=== PATIENT | male | born 1960 | race Caucasian/White ===

== ENCOUNTER → 2017-04-12 | Outpatient (CLI) | payer BC ==
[~2017-04-12] MED LIST: IBUP-1450 PO; METO50TA7 PO
--- NOTE | 2017-04-12 16:09 | DIAGNOSTIC IMAGING REPORT ---
CHEST 2 VIEWS ROUTINE CLINICAL HISTORY: I10 [id number] dyspnea COMPARISON STUDY: 08/22/2012 FINDINGS: Mild stable cardia megaly. Mild atelectasis left base. Lungs otherwise appear clear. IMPRESSION: Mild cardia megaly. Mild platelike atelectasis left base. Otherwise negative study. The above report was generated using voice recognition software. It may contain grammatical, syntax or spelling errors. Electronically signed by: Leonel Correa M.D. 04/12/2017 4:07 PM Dictated Date/Time: 04/12/2017 4:07 PM
== END | disposition home or self-care (01) ==
LOC: C.RADBC 15:54
PROVIDERS: ATTEND Internal Medicine
DX: I10 Essential (primary) hypertension (principal)

== ENCOUNTER → 2017-04-12 | Outpatient (CLI) | payer BC ==
[2017-04-12 17:38] LABS: BASO % 0.4 %; BASO ABS # 0.03 K/uL (0-0.2); COMPLETE YES; EOS % 3.7 %; HEMATOCRIT 44.6 % (42-52); IG% 0.4 %; LYMPH % 33.4 %; LYMPH ABS # 2.44 K/uL (1.2-3.4); MEAN CELL VOLUME 92.5 fL (80-100); MEAN CORPUSCULAR HEMOGLOBIN 31.3 pg (25-34); MEAN CORPUSCULAR HGB CONC 33.9 g/dl (32-36); MEAN PLATELET VOLUME 10.5 fL (7.4-10.4); MONO % 11.5 %; NEUT % 50.6 %; PLATELET COUNT 222 K/uL (130-400); RED BLOOD COUNT 4.82 M/uL (4.7-6.1)
[2017-04-12 18:16] LABS: BLOOD UREA NITROGEN 13 mg/dl (7-18); CREATININE 0.85 mg/dl (0.60-1.40); GLUCOSE 87 mg/dl (70-99)
[2017-04-12 18:17] LABS: ALT/SGPT 57 U/L (12-78); BUN/CREATININE RATIO 15.6 (10-20); CALCIUM 9.1 mg/dl (8.5-10.1); CARBON DIOXIDE 28 mmol/L (21-32); CHLORIDE 107 mmol/L (98-107); SODIUM 142 mmol/L (136-145)
[2017-04-12 18:27] LABS: ALB/GLOB RATIO 1.1 (0.9-2); ALKALINE PHOSPHATASE 55 U/L (45-117); AST/SGOT 15 U/L (15-37)
[2017-04-12 18:59] LABS: LYME DISEASE AB IGM NEG (NEG)
[2017-04-12 19:00] LABS: LYME DISEASE AB IGG NEG (NEG)
== END | disposition home or self-care (01) ==
LOC: C.LAB 16:33
PROVIDERS: ATTEND Internal Medicine
DX: I10 Essential (primary) hypertension (principal); M79.1 Myalgia

== ENCOUNTER → 2017-08-06 | Outpatient (CLI) | payer BC | END | disposition home or self-care (01) | LOC: C.RDSM 08:00 | PROVIDERS: ATTEND Orthopaedic Surgery Sports Medicine | DX: M25.561 Pain in right knee (principal) ==

== ENCOUNTER → 2018-01-18 | Outpatient (CLI) | payer OTHER ==
[~2018-01-18] MED LIST changes: -METO50TA7 PO; +METO50TA8 PO
== END | disposition home or self-care (01) ==
LOC: C.LAB 14:50
PROVIDERS: ATTEND Internal Medicine
DX: Z11.59 Encounter for screening for other viral diseases (principal)

== ENCOUNTER 2018-09-05 13:21 | Inpatient (IN) ==
--- NOTE | 2018-09-05 15:01 | XRay Report ---
XR chest 1V portable HISTORY: 58 years-old Male SHORT OF BREATH acute shortness of breath COMPARISON: Chest radiograph 08/22/2012 TECHNIQUE: Portable AP view of the chest FINDINGS: Cardiac silhouette is enlarged, unchanged. Trace pleural effusions. Subsegmental bibasilar opacities. Mild pulmonary vascular congestion without pneumothorax. Calcification the thoracic aortic arch. Deg enerative changes of the shoulders and spine. IMPRESSION: 1. Cardiomegaly with pulmonary vascular congestion. 2. Trace bilateral pleural effusions with subsegmental bibasilar opacities suggestive of atelectasis. The above report was generated using voice recognition software. It may contain grammatical, syntax o r spelling errors. Electronically signed by: Walter Amaral M.D. 09/05/2018 2:59 PM
[2018-09-05 15:40] LABS: Basophils # (auto) 0.01 K/uL (0-0.2); Basophils % (auto) 0.1 %; Eosinophils # (auto) 0.31 K/uL (0-0.5); Eosinophils % (auto) 4.2 %; Hematocrit (blood only) 50.2 % (42-52); Hemoglobin 16.2 g/dL (14.0-18.0); Immature Granulocytes # (auto) 0.03 K/uL (0.00-0.02); Immature Granulocytes % (auto) 0.4 %; Lymphocytes # (auto) 1.69 K/uL (1.2-3.4); Lymphocytes % (auto) 23.1 %; Mean Corpuscular Hgb Conc 32.3 g/dL (32-36); Mean Corpuscular Volume 96.5 fL (80-100); Mean Platelet Volume 10.3 fL (7.4-10.4); Monocytes % (auto) 12.3 %; Neutrophils # (auto) 4.38 K/uL (1.4-6.5); Neutrophils % (auto) 59.9 %; Platelet Count 195 K/uL (130-400); RDW Coefficient of Variation 13.2 % (11.5-14.5); RDW Standard Deviation 46.6 fL (36.4-46.3); White Blood Count 7.32 K/uL (4.8-10.8)
[2018-09-05] MEDS ORDERED: DOXYCYCLINE HYCLATE 100 MG in DEXTROSE 5% 100 ML IV STA (15:52)
[2018-09-05 16:35] LABS: Alanine Aminotransferase 40 U/L (12-78); Albumin Globulin Ratio 0.8 (0.9-2); Albumin Level 3.4 gm/dl (3.4-5.0); Alkaline Phosphatase 64 U/L (45-117); BUN Creatinine Ratio 14.8 (10-20); Bilirubin,Total 0.5 mg/dl (0.2-1); Blood Urea Nitrogen 12 mg/dl (7-18); Calcium 8.6 mg/dl (8.5-10.1); Carbon Dioxide 29 mmol/L (21-32); Chloride 103 mmol/L (98-107); Est GFR (African American) 112.7; Est GFR (Non-African American) 97.2; Globulin 4.2 gm/dl (2.5-4.0); Glucose 116 mg/dl (70-99); Sodium 138 mmol/L (136-145); Total Protein 7.6 gm/dl (6.4-8.2); Troponin I < 0.015 ng/ml (0-0.045)
--- NOTE | 2018-09-05 16:48 | Ultrasound Report ---
US venous doppler LE BI HISTORY: Pain. Edema. swwelling eval for dvt COMPARISON STUDY: 07/18/2015 FINDINGS: There is normal compressibility, flow, and augmentation within the bilateral lower extremit y deep venous systems. IMPRESSION: No DVT within the right or left lower extremity. The above report was generated using voice recognition software. It may contain grammatical, syntax or spelling errors. Electronically signed by: Leonel Correa M.D. 09/05/2018 4:46 PM
[2018-09-05 17:29] LABS: Potassium 4.3 mmol/L (3.5-5.1)
[2018-09-05] MEDS ORDERED: VANCOMYCIN HCL 2,750 MG in SODIUM CHLORIDE 0.9% 500 ML IV ONE (17:45)
--- NOTE | 2018-09-05 18:32 | History & Physical Report ---
Date of Service September 05, 2018 Assessment & Plan (1) Cellulitis of both lower extremities: (2) Lymphedema: -Admit to [facility] for observation -Infectious disease consulted, ER physician spoke with Dr. Calabrese who initially recommended doxycycline p.o. and for the patient to be sent home, however the patient has expressed concerns and wishes to be admitted due to increased weeping on the backside of his legs as well as difficulty walking due to swelling. -Place patient on IV vancomycin, also cover with IV ceftriaxone -No WBC, afebrile, vital signs stable -We will check MRSA swab -Wound consulted -Will order Lasix 40 mg IV now for increased swelling in LE to see if this alleviates sensation of tightness, monitor am prp to watch Cr. and electrolytes. CXR did show trace effusions bilaterally. -Dopplers negative for DVT bilaterally (3) Morbid obesity: -Diet and exercise discussed with the patient at bedside -Patient reports gaining 150 pounds of the past 18 months. -Heart healthy diet -Alcohol use contributing (4) Alcohol abuse: -Patient drinks 8-10 beers per day-we will check EtOH level now -Monitor for signs of withdrawal, Ativan p.o. as needed for withdrawal symptoms such as agitation, tremor, hemodynamic instability -Cessation encouraged at bedside, patient will need reinforcement upon discharge -Start daily thiamine and MVI (5) Depression: -Patient appears to have enough flat affect throughout the exam, and appears to be dissatisfied and irritated with any questioning. patient does have an ex- who was initially here, however was not at bedside during my exam. -Consider psych consult and conversation regarding initiation of an antidepressant (6) DVT prophylaxis: -Lovenox subcu History of Present Illness Primary Care Provider: Gelacio Burroughs MD This is a 58 yo M with PMHx of morbid obesity with BMI of 51.7, chronic lymphedema, chronic bilateral lower leg cellulitis on chronic bactrim and keflex , chronic alcohol abuse, chronic venous insufficiency, stasis dermatitis who presents with worsening swelling and weeping from left posterior calf which has worsened x 1 week. Pt states he feels a tightness in his legs and feet like he is wearing shoes. He also has a burning sensation superficially where the blister on the back of his left calf has opened. He denies fever, chills or sweats. Pt states that he has gained 150 lbs in past ~18 months, he does not weight himself, and states he cannot participate in exercise because of R quadricept tear sustained about 2 years ago. Doppler BLE negative for acute DVT. Allergies Allergy/AdvReac Type Severity Reaction Status Date / Time iodine Allergy Intermediate CT DYE - Verified 07/23/15 19:55 HIVES Home Medications Home Medications Medication Instructions Recorded Confirmed Type aspirin [Aspir-81] 81 mg PO DAILY 09/05/18 09/05/18 History cephalexin 500 mg PO DAILY 09/05/18 09/05/18 History metoprolol succinate 50 mg PO DAILY 09/05/18 09/05/18 History sulfamethoxazole-trimethoprim 1 tab PO DAILY 09/05/18 09/05/18 History Past Med/Surg History Medical History Depression Alcohol abuse Morbid obesity Cellulitis of both lower extremities (Acute) Lymphedema (Acute) Group B streptococcal infection Leukocytosis Quadriceps tendon rupture (Acute) Social History marital status: single current occupational status: employed Feels Safe at Home: Yes Smoking Status: Never smoker Preferred Language: Cam[place]onian Review of Systems Constitutional: No fever, sweats or chills Eyes: No diplopia, no worsening or blurred vision ENT: normal hearing, no trouble swallowing Respiratory: No cough, sputum, dyspnea at rest , + dyspnea on exertion Cardiovascular: No chest pain, tightness or palpitations Abdomen: No pain, nausea, vomiting, diarrhea or constipation Musculoskeletal: No joint pain, calf pain, + swelling in BLE as per HPI. Neurologic: No weakness, numbness/tingling, or balance problems Psychiatric: No anxiety or depression Skin: No rash or itch Physical Exam 2 Vital Signs (Past 24 Hours): Last Vital Signs Temp 37 C 09/05/18 14:07 Pulse 55 L 09/05/18 17:48 Resp 18 09/05/18 17:48 BP 159/86 H 09/05/18 17:48 Pulse Ox 98 09/05/18 17:48 Physical Exam: General: awake, alert, no apparent distress, morbidly obese, BMI =51.7 Head: Normocephalic, atraumatic ENT: PERRL, EOMI, no pharyngeal exudate, mucous membranes moist Chest: Clear to auscultation, on room air, + faint expiratory wheeze in lower lo bilaterally, no other adventitious breath sounds Cardiac: Regular rate and rhythm, no murmur, no JVD, normal peripheral pulses, good capillary refill Abdominal: NABS x 4 quadrants, soft, nontender to palpation, no rebound, guarding or tenderness Extremities: Normal inspection, no peripheral edema or erythema, calfs nontender to palpation Psych: Depressed mood and flat affect, irritable when questioned, especially about drinking Neuro: AAO x 3, strength intact bilaterally and related 5/5, no motor deficits, speech is clear, no peripheral sensory deficits Results & Data Diagnostic Findings XR chest 1V portable HISTORY: 58 years-old Male SHORT OF BREATH acute shortness of breath COMPARISON: Chest radiograph 08/22/2012 TECHNIQUE: Portable AP view of the chest FINDINGS: Cardiac silhouette is enlarged, unchanged. Trace pleural effusions. Subsegmental bibasilar opacities. Mild pulmonary vascular congestion without pneumothorax. Calcification the thoracic aortic arch. Degenerative changes of the shoulders and spine. IMPRESSION: 1. Cardiomegaly with pulmonary vascular congestion. 2. Trace bilateral pleural effusions with subsegmental bibasilar opacities suggestive of atelectasis. US venous doppler LE BI HISTORY: Pain. Edema. swwelling eval for dvt COMPARISON STUDY: 07/18/2015 FINDINGS: There is normal compressibility, flow, and augmentation within the bilateral lower extremity deep venous systems. IMPRESSION: No DVT within the right or left lower extremity. ECG Additional Comments: 05-SEP-2018 14:53:30 [facility] Normal sinus rhythm Incomplete right bundle branch block Nonspecific ST abnormality Borderline ECG When compared with ECG of 19-FEB-2015 13:02, Nonspecific T wave abnormality now evident in Lateral leads Vent. rate 63 BPM MD interval 186 ms QRS duration 96 ms QT/QTc 414/423 ms P-R-T axes 53 4 51 Code Status & VTE Plan Code Status Full Supervising Physician Co-Signing Physician Notes Patient seen and examined, chart reviewed, case discussed with SOCORRO Castillo and I agree with her assessment and plan as documented above. Patient is a 58yo morbidly obese C male with history of lymphedema, cellulitis on suppressive antibiotic therapy outpatient (Keflex/Bactrim) presenting with worsening cellulitis and weeping, pain from an open wound. On exam he is afebrile, hemodynamically stable, NAD. Flat affect. Skin - LE with edema, warm, red, tender, flaking skin, no bullae/crepitus/ lymphangitic streaking HEENT- NC/AT, PERRL, MMM, neck supple Heart - +S1/S2, regular, bradycardic Lungs - CTA, no rales/rhonchi/wheezes Abd - obese, soft, NT/ND Ext - as above Labs and images reviewed. Assessment/Plan: 58yo male with lymphedema, cellulitis, failed outpatient therapy. Will admit for IV antibiotics. Monitor for EtOH withdrawal as patient is a heavy drinker. I discussed patient's drinking with him and the risks associated with heavy EtOH consumption. Patient appears quite depressed and may benefit from trial of SSRI
[2018-09-05] MEDS ORDERED: FUROSEMIDE 40 MG in SYRINGE 0 ML IV SCH (20:30)
[2018-09-05] MEDS ORDERED: ONDANSETRON INJ 2 MG/ML 2 ML VIAL IV PRN (20:34)
[2018-09-05] MEDS ORDERED: VANCOMYCIN CONSULT ACTIVE PRN (20:34)
[2018-09-05] MEDS ORDERED: LORazepam 1 MG TAB PO PRN (20:34)
[2018-09-05] MEDS ORDERED: ACETAMINOPHEN 325 MG TAB PO PRN (20:34)
[2018-09-05] MEDS ORDERED: FUROSEMIDE 40 MG/4 ML VIAL IV STA (20:34)
[2018-09-05 21:27] LABS: Albumin Level 3.2 gm/dl (3.4-5.0); Bilirubin Direct 0.1 mg/dl (0-0.2); Bilirubin,Total 0.5 mg/dl (0.2-1); Total Protein 6.5 gm/dl (6.4-8.2)
[2018-09-05] MEDS: THIAMINE HCL 100 MG in SYRINGE 9 ML IV SCH (21:29)
[2018-09-05] MEDS: cefTRIAXone SODIUM 2,000 MG in DEXTROSE 5% 50 ML IV SCH (21:29)
[2018-09-05 21:35] LABS: Folate (Folic Acid) 19.38 ng/ml (>5.38)
--- NOTE | 2018-09-05 22:20 | Emergency Department Note ---
Entered by Karolina Davey acting as a scribe for History of Present Illness General Chief complaint: Swelling/Edema to Extremity Stated complaint: lymphdema Source: patient Mode of arrival: ambulatory Limitations: no limitations History of Present Illness Provider complaint: Swelling to legs Onset (ago): week(s) (couple of weeks ago) Location: lower extremity (bilateral legs) Radiation: non-radiation Pain Consistency: + other (worsening) Maximum Pain Intensity: 0 Quality: + other (swelling) Relieved By: + none Associated symptoms: + fever/chills (positive chills, negative fever), + shortness of breath and + other (Additional symptoms: erythema, dry skin, weeping on back of legs. Denies: swelling elsewhere on body); no nausea/vomiting Treatments prior to arrival: none The patient is a 58 year old male who presents to the Emergency Room with complaints of worsening bilateral leg swelling starting a couple of weeks ago. The patient reports that he sees Dr. Alvarez and Dr. Calabrese for lymphedema and infection in his bilateral legs, which he developed following surgery for a ruptured quadriceps tendon a few years ago. He states that he has consequently been on antibiotics, including Bactrim and Keflex for the past couple of years. He notes that he was referred the ED today because his doctors could not schedule him an appointment before next week but did not want his leg symptoms to continue worsening. The patient reports that his bilateral legs swelling has been accompanied by spreading erythema, increasing dry skin, and burning and sore weeping on the back of his legs starting 3 days ago. He states that his weeping produces clear "sap-like" fluid. He also complains of chills and shortness of breath over the past year, but no fevers, vomiting, and swelling elsewhere on his body. The patient adds that he does not elevate his legs and sleeps on a recliner. He also states that at his employment he is standing on his feet all day. He notes that he saw Dr. Palmer in [place] about possibly "closing off" some of his veins to improve circulation in his legs, but he reports that Dr. Palmer was unable to do anything because his lymphedema is reportedly a "deep vein problem."He denies having a history of DVT. Home Medications Home Medications Medication Instructions Recorded Confirmed Type aspirin [Aspir-81] 81 mg PO DAILY 09/05/18 09/05/18 History cephalexin 500 mg PO DAILY 09/05/18 09/05/18 History metoprolol succinate 50 mg PO DAILY 09/05/18 09/05/18 History sulfamethoxazole-trimethoprim 1 tab PO DAILY 09/05/18 09/05/18 History Allergies Allergy/AdvReac Type Severity Reaction Status Date / Time iodine Allergy Intermediate CT DYE - Verified 07/23/15 19:55 HIVES Past Med/Surg History Medical History Depression Alcohol abuse Morbid obesity Cellulitis of both lower extremities (Acute) Lymphedema (Acute) Group B streptococcal infection Leukocytosis Quadriceps tendon rupture (Acute) Social History marital status: single Current Living Situation: Alone current occupational status: employed Other Information That Helps Us Care for You: No Feels Safe at Home: Yes Safety Concerns: Feels Safe At This Time Smoking Status: Never smoker Hx Alcohol Use: Yes Alcohol type: beer Alcohol Intake Frequency: 3 or more drinks per day Hx Substance Use: No Beliefs That Will Affect Care: None Preferred Language: Trinidadian Communication Ability: Effective Thermite Bomb Loader Required: No Review of Systems See HPI for pertinent positives & negatives. and A total of 10 systems reviewed and were otherwise negative Physical Exam Vital Signs Vital Signs - 24 hr 09/05/18 14:07 09/05/18 14:56 09/05/18 14:59 Temperature 37 C Temperature Source Oral Sepsis Recent Fever Within 48 Hours No Sepsis New/Unexplained Change in Mental Status No Sepsis Action Taken by Nursing No Action Required Pulse Rate 72 64 Pulse Rate [Left Finger] Pulse Rhythm [Left Finger] Pulse Strength [Left Finger] Respiratory Rate 22 18 Respiratory Effort / Characteristics Non-Labored Spontaneous Respiratory Depth Normal Respiratory Pattern Regular Blood Pressure 171/87 H Blood Pressure [Left Arm] Blood Pressure Mean 115 Blood Pressure Mean [Left Arm] Pulse Oximetry 93 95 92 Oxygen Delivery Method Room Air Room Air 09/05/18 15:01 09/05/18 15:31 09/05/18 16:01 Temperature Temperature Source Sepsis Recent Fever Within 48 Hours Sepsis New/Unexplained Change in Mental Status Sepsis Action Taken by Nursing Pulse Rate 60 60 63 Pulse Rate [Left Finger] Pulse Rhythm [Left Finger] Pulse Strength [Left Finger] Respiratory Rate 21 17 20 Respiratory Effort / Characteristics Respiratory Depth Respiratory Pattern Blood Pressure 147/78 H 142/75 H 142/71 H Blood Pressure [Left Arm] Blood Pressure Mean 101 97 94 Blood Pressure Mean [Left Arm] Pulse Oximetry 93 Oxygen Delivery Method 09/05/18 17:48 09/05/18 19:56 09/05/18 21:40 Temperature 36.6 C Temperature Source Oral Sepsis Recent Fever Within 48 Hours Sepsis New/Unexplained Change in Mental Status Sepsis Action Taken by Nursing Pulse Rate Pulse Rate [Left Finger] 55 L 78 84 Pulse Rhythm [Left Finger] Regular Pulse Strength [Left Finger] Normal Respiratory Rate 18 22 22 Respiratory Effort / Characteristics Non-Labored Spontaneous Non-Labored Respiratory Depth Normal Normal Respiratory Pattern Regular Blood Pressure Blood Pressure [Left Arm] 159/86 H 151/70 H 172/96 H Blood Pressure Mean Blood Pressure Mean [Left Arm] 110 97 121 Pulse Oximetry 98 92 94 Oxygen Delivery Method Room Air Room Air Constitutional: Vital signs reviewed. Eyes: Pupils are equal round reactive to light. Conjunctiva are noninjected. ENT: Pharynx is clear without erythema or exudate. Mucous membranes are moist. Neck supple without meningeal signs. Respiratory: Clear to auscultation bilaterally. Breath sounds are equal bilaterally. Cardiovascular: Regular rate and rhythm. No rubs or gallops. GI: Soft, nondistended and nontender. Bowel sounds are present. Musculoskeletal: Severe lymphedema to the lower extremities with erythema and tenderness from the knees down to the toes. Weeping of yellowish clear fluid from the posterior left calf. Integumentary: No cyanosis. Neurological: The patient is awake and alert. No focal deficits. Psychiatric: Normal affect. Course 1537: Past medical records reviewed. The patient was evaluated in room C6, and a complete history and physical examination were performed. 1551: I reviewed the patient's case with Dr. Calabrese - Infectious Disease, [facility]. Dr. Calabrese recommended putting the patient on a 14-day course of Doxycycline and instructing him to follow up with her at her office. 1555: I updated the patient on his treatment plan. 1722: I reevaluated the patient and he stated that he is uncomfortable being discharged. He noted that he feels like his legs are worse and would like to be admitted. I will page Dr. Calabrese. 1724: I reviewed the patient's case with Dr. Calabrese. Dr. Calabrese stated to start him on Vancomycin. 1734: I reviewed the patient's case with Dr. Templeton - Hospitalist, [facility]. Dr. Templeton will evaluate the patient for further management. Consultations Consultation #1: I reviewed the patient's case with Dr. Calabrese - Infectious Disease, [facility]. Dr. Calabrese recommended putting the patient on a 14- day course of Doxycycline and instructing him to follow up with her at her office. Time: 15:51 Consultation #2: I reviewed the patient's case with Dr. Calabrese after the patient and his ex- stated that they did not feel comfortable with him going home. Dr. Calabrese stated to start him on Vancomycin. Time: 17:24 Consultation #3: I reviewed the patient's case with Dr. Templeton - Hospitalist, [facility]. Dr. Templeton will evaluate the patient for further management. Time: 17:34 Administered Medications Ceftriaxone Sodium 2,000 mg/ (Dextrose) 70 mls @ 100 mls/hr IV Q24H [facility]; Protocol Stop: 09/15/18 20:59 Last Admin: 09/05/18 21:29 Dose: 100 mls/hr Thiamine HCl 100 mg/ Syringe 10 mls @ 2 mls/hr IV Q24H [facility] Stop: 10/05/18 20:59 Last Admin: 09/05/18 21:29 Dose: 2 mls/hr Discontinued Medications Doxycycline Hyclate 100 mg/ (Dextrose) 110 mls @ 50 mls/hr IV NOW STA Stop: 09/05/18 18:03 Last Infusion: 09/05/18 19:29 Dose: 0 mls/hr Admin: 09/05/18 16:46 Dose: 50 mls/hr Vancomycin HCl 2,750 mg/ (Sodium Chloride) 555 mls @ 200 mls/hr IV NOW ONE Stop: 09/05/18 20:31 Last Infusion: 09/05/18 21:27 Dose: Admin: 09/05/18 18:14 Dose: 200 mls/hr Medical Decision Making Differential Diagnosis Differential diagnosis includes cellulitis, lymphedema, DVT, CHF, outpatient treatment failure. Medical Records Attestation: I reviewed the patient's medical records. Home Medications Current Medication List: was personally reviewed by me Laboratory Data Attestation: I reviewed the patient's lab results. Result diagrams: 09/05/18 15:20 09/05/18 17:06 Lab Results 09/05/18 09/05/18 09/05/18 Range/Units 15:20 15:20 15:20 WBC 7.32 (4.8-10.8) K/uL RBC 5.20 (4.7-6.1) M/uL Hgb 16.2 (14.0-18.0) g/dL Hct 50.2 (42-52) % MCV 96.5 (80-100) fL MCH 31.2 (25-34) pg MCHC 32.3 (32-36) g/dL RDW Std Deviation 46.6 H (36.4-46.3) fL RDW Coeff of Megan 13.2 (11.5-14.5) % Plt Count 195 (130-400) K/uL MPV 10.3 (7.4-10.4) fL Immature Gran % (Auto) 0.4 % Neut % (Auto) 59.9 % Lymph % (Auto) 23.1 % Harrison % (Auto) 12.3 % Eos % (Auto) 4.2 % Baso % (Auto) 0.1 % Immature Gran # (Auto) 0.03 H (0.00-0.02) K/uL Neut # (Auto) 4.38 (1.4-6.5) K/uL Lymph # (Auto) 1.69 (1.2-3.4) K/uL Harrison # (Auto) 0.90 H (0.11-0.59) K/uL Eos # (Auto) 0.31 (0-0.5) K/uL Baso # (Auto) 0.01 (0-0.2) K/uL Sodium 138 (136-145) mmol/L Potassium (3.5-5.1) mmol/L Chloride 103 (98-107) mmol/L Carbon Dioxide 29 (21-32) mmol/L Anion Gap 6.0 (3-11) BUN 12 (7-18) mg/dl Creatinine 0.84 (0.6-1.4) mg/dl Est Cr Clr Drug Dosing Not Reportable Est GFR ( Amer) 112.7 Est GFR (Non-Af Amer) 97.2 BUN/Creatinine Ratio 14.8 (10-20) Glucose 116 H (70-99) mg/dl Calcium 8.6 (8.5-10.1) mg/dl Total Bilirubin 0.5 (0.2-1) mg/dl Direct Bilirubin (0-0.2) mg/dl AST (15-37) U/L ALT 40 (12-78) U/L Alkaline Phosphatase 64 (45-117) U/L Troponin I < 0.015 (0-0.045) ng/ml NT-Pro-B Natriuret Pep 21 (0-900) pg/ml Total Protein 7.6 (6.4-8.2) gm/dl Albumin 3.4 (3.4-5.0) gm/dl Globulin 4.2 H (2.5-4.0) gm/dl Albumin/Globulin Ratio 0.8 L (0.9-2) Vitamin B12 (211-911) pg/ml Folate (>5.38) ng/ml Ethyl Alcohol mg/dL (0-3) mg/dl 09/05/18 09/05/18 09/05/18 Range/Units 17:06 20:48 20:48 WBC (4.8-10.8) K/uL RBC (4.7-6.1) M/uL Hgb (14.0-18.0) g/dL Hct (42-52) % MCV (80-100) fL MCH (25-34) pg MCHC (32-36) g/dL RDW Std Deviation (36.4-46.3) fL RDW Coeff of Megan (11.5-14.5) % Plt Count (130-400) K/uL MPV (7.4-10.4) fL Immature Gran % (Auto) % Neut % (Auto) % Lymph % (Auto) % Harrison % (Auto) % Eos % (Auto) % Baso % (Auto) % Immature Gran # (Auto) (0.00-0.02) K/uL Neut # (Auto) (1.4-6.5) K/uL Lymph # (Auto) (1.2-3.4) K/uL Harrison # (Auto) (0.11-0.59) K/uL Eos # (Auto) (0-0.5) K/uL Baso # (Auto) (0-0.2) K/uL Sodium (136-145) mmol/L Potassium 4.3 (3.5-5.1) mmol/L Chloride (98-107) mmol/L Carbon Dioxide (21-32) mmol/L Anion Gap (3-11) BUN (7-18) mg/dl Creatinine (0.6-1.4) mg/dl Est Cr Clr Drug Dosing Est GFR ( Amer) Est GFR (Non-Af Amer) BUN/Creatinine Ratio (10-20) Glucose (70-99) mg/dl Calcium (8.5-10.1) mg/dl Total Bilirubin 0.5 (0.2-1) mg/dl Direct Bilirubin 0.1 (0-0.2) mg/dl AST 6 L 5 L (15-37) U/L ALT 33 (12-78) U/L Alkaline Phosphatase 55 (45-117) U/L Troponin I (0-0.045) ng/ml NT-Pro-B Natriuret Pep (0-900) pg/ml Total Protein 6.5 (6.4-8.2) gm/dl Albumin 3.2 L (3.4-5.0) gm/dl Globulin (2.5-4.0) gm/dl Albumin/Globulin Ratio (0.9-2) Vitamin B12 559 (211-911) pg/ml Folate 19.38 (>5.38) ng/ml Ethyl Alcohol mg/dL (0-3) mg/dl 09/05/18 Range/Units 20:48 WBC (4.8-10.8) K/uL RBC (4.7-6.1) M/uL Hgb (14.0-18.0) g/dL Hct (42-52) % MCV (80-100) fL MCH (25-34) pg MCHC (32-36) g/dL RDW Std Deviation (36.4-46.3) fL RDW Coeff of Megan (11.5-14.5) % Plt Count (130-400) K/uL MPV (7.4-10.4) fL Immature Gran % (Auto) % Neut % (Auto) % Lymph % (Auto) % Harrison % (Auto) % Eos % (Auto) % Baso % (Auto) % Immature Gran # (Auto) (0.00-0.02) K/uL Neut # (Auto) (1.4-6.5) K/uL Lymph # (Auto) (1.2-3.4) K/uL Harrison # (Auto) (0.11-0.59) K/uL Eos # (Auto) (0-0.5) K/uL Baso # (Auto) (0-0.2) K/uL Sodium (136-145) mmol/L Potassium (3.5-5.1) mmol/L Chloride (98-107) mmol/L Carbon Dioxide (21-32) mmol/L Anion Gap (3-11) BUN (7-18) mg/dl Creatinine (0.6-1.4) mg/dl Est Cr Clr Drug Dosing Est GFR ( Amer) Est GFR (Non-Af Amer) BUN/Creatinine Ratio (10-20) Glucose (70-99) mg/dl Calcium (8.5-10.1) mg/dl Total Bilirubin (0.2-1) mg/dl Direct Bilirubin (0-0.2) mg/dl AST (15-37) U/L ALT (12-78) U/L Alkaline Phosphatase (45-117) U/L Troponin I (0-0.045) ng/ml NT-Pro-B Natriuret Pep (0-900) pg/ml Total Protein (6.4-8.2) gm/dl Albumin (3.4-5.0) gm/dl Globulin (2.5-4.0) gm/dl Albumin/Globulin Ratio (0.9-2) Vitamin B12 (211-911) pg/ml Folate (>5.38) ng/ml Ethyl Alcohol mg/dL < 3.0 (0-3) mg/dl Imaging Data Radiologist's Impression: Radiology results as stated below per my review and the radiologist's interpretation: XR chest 1V portable HISTORY: 58 years-old Male SHORT OF BREATH acute shortness of breath COMPARISON: Chest radiograph 08/22/2012 TECHNIQUE: Portable AP view of the chest FINDINGS: Cardiac silhouette is enlarged, unchanged. Trace pleural effusions. Subsegmental bibasilar opacities. Mild pulmonary vascular congestion without pneumothorax. Calcification the thoracic aortic arch. Degenerative changes of the shoulders and spine. IMPRESSION: 1. Cardiomegaly with pulmonary vascular congestion. 2. Trace bilateral pleural effusions with subsegmental bibasilar opacities suggestive of atelectasis. The above report was generated using voice recognition software. It may contain grammatical, syntax or spelling errors. Electronically signed by: Walter Amaral M.D. 09/05/2018 2:59 PM US venous doppler LE BI HISTORY: Pain. Edema. swwelling eval for dvt COMPARISON STUDY: 07/18/2015 FINDINGS: There is normal compressibility, flow, and augmentation within the bilateral lower extremity deep venous systems. IMPRESSION: No DVT within the right or left lower extremity. The above report was generated using voice recognition software. It may contain grammatical, syntax or spelling errors. Electronically signed by: Leonel Correa M.D. 09/05/2018 4:46 PM ECG Data Attestation: I personally reviewed and interpreted this ECG as follows: Indication: SOB/dyspnea Rate (beats per minute): 63 Rhythm: normal sinus Findings: + RBBB (incomplete); no ST depression and no ST elevation Blood Pressure Blood Pressure Findings: Elevated blood pressure Blood Pressure Disposition: Referred to patients primary care provider MDM Narrative I did perform a limited focused review of portions of the patient's old chart on the electronic medical record. The patient has had no recent pertinent visits to this hospital. I did evaluate the patient as noted above. Patient has a history of chronic lymphedema. He is chronically on prophylactic antibiotics for the past 2 years. He has been on Bactrim and Keflex. He is presenting with worsening erythema to his legs with weeping from the left leg. He has had no fevers. He does complain of some shortness of breath which is chronic for him. He denies any chest pain. IV access was established. The patient was placed on a continuous ekg monitor tech. I did order and personally review the patient's 12- lead EKG and chest x-ray as described above. His twelve-lead EKG does not show any acute abnormality suggestive of ischemia. His chest x-ray shows some mild pleural effusions and possible vascular congestion, but this is an AP portable film. He has no known history of CHF. I did order and review the patient's blood work as noted in the electronic medical record. His white blood cell count is not elevated. I did speak to Dr. Calabrese who initially recommended he be discharged home with doxycycline. I did order a Doppler ultrasound of the lower extremities. I did review the images myself as well as the radiology report as described above. There is no evidence of DVT. I did reassess the patient and discuss the test results with him. He is very concerned about going home and felt that his condition was significantly worse than his baseline. I did feel it was reasonable to keep him for IV antibiotics given his severe lymphedema and significant cellulitis to his legs. I did call back Dr. Calabrese who was in agreement and recommended treating with vancomycin. He was given IV vancomycin here. I did discuss the case with the hospitalist and mental health case manager. Impression & Plan Cellulitis of both lower extremities, Lymphedema, Dyspnea, Failure of outpatient treatment Discharge Plan Visit Data *Final* Discharge Date/Time: 09/05/18 20:00 Chief Complaint: Swelling/Edema to Extremity Stated Complaint: lymphdema ED Provider: Alberto Neil Discharge Problem: Cellulitis of both lower extremities, Lymphedema, Dyspnea, Failure of outpatient treatment Patient Disposition: Admitted As Inpatient Discharge Instructions Interventions: ED Discharge Assessment Last Done: 09/05/18 20:00 The scribe's documentation has been prepared under my direction and personally reviewed by me in its entirety. I confirm that the note above accurately reflects all work, treatment, procedures, and medical decision making performed by me.
[2018-09-06] MEDS: VANCOMYCIN HCL 2,250 MG in SODIUM CHLORIDE 0.9% 500 ML IV SCH ×3 (01:36→18:08)
[2018-09-06] MEDS: ASPIRIN 81 MG ECTAB PO SCH (07:42)
[2018-09-06] MEDS: METOPROLOL SUCC 50MG EXT REL TAB PO SCH (07:42)
[2018-09-06] MEDS: MULTIVITAMIN TAB PO SCH (07:42)
[2018-09-06 08:41] LABS: INR 1.1 (0.9-1.1); Prothrombin Time 10.6 Seconds (9.0-12.0)
[2018-09-06] MEDS ORDERED: ENOXAPARIN INJ 40 MG/0.4 ML SYR SQ SCH (09:00)
[2018-09-06 09:04] LABS: Albumin Level 3.4 gm/dl (3.4-5.0); BUN Creatinine Ratio 11.9 (10-20); Calcium 8.7 mg/dl (8.5-10.1); Creatinine Clr Calc Pharmacy 183.8 ml/min; Est GFR (African American) 114.3; Est GFR (Non-African American) 98.7
[2018-09-06 09:11] LABS: Albumin Globulin Ratio 0.9 (0.9-2); Bilirubin,Total 0.7 mg/dl (0.2-1); Globulin 3.9 gm/dl (2.5-4.0); Total Protein 7.3 gm/dl (6.4-8.2)
[2018-09-06] MEDS: ENOXAPARIN INJ 40 MG/0.4 ML SYR SQ SCH ×2 (09:58→21:01)
[2018-09-06] MEDS: AMMONIUM LACTATE 12% LOTION 225 GM BTL EXT SCH ×2 (12:49→21:02)
--- NOTE | 2018-09-06 14:03 | Infectious Disease Consult ---
Date of Consultation September 06, 2018 Assessment & Plan (1) Lymphedema: unsure if current symptoms due to infection, fluid overload or combination of both. follow wound culture, maintain IV abx for now. If wound culture negative, can change back to suppressive abx - bactrim and keflex. pt has ID appt scheduled for late Sep, encourage outpt followup, elevate legs. may benefit from diuresis. local care to left calf. History of Present Illness Attending Physician: Yogesh Davey MD, PhD, [facility] pt admitted with increased swelling in b/l legs and sob. cxr with pulm edema. states unable to wear shoes at home due to swelling. no f/c. no increased redness, no increased pain, started having weeping for left post calf. called pcp, instructed to go to ER, in ER doppler negative. was to be d/c on po abx with plans for ID followup as outpt but wanted hospital admission. was previously on suppressive bactrim and kelflex for reccurrent cellulitis and lymphedema. No f/c at home, afebrile since admission. wbc nml. cxr with fluid. received lasix in ER. still with swelling, no pain, no increased redness but chronic status changes noted. wound culture done in ER - pending, gram stain with no wbc, no organisms. has h/o etoh abuse, level < 3 in Er. Placed on IV abx - currently on rocephin and vanco, tolerating well. does not note improvement in symptoms toady, still with sob, no cp, no cough, no wheeze, no abd pain no n/v/d, eating well. States he was told he should elevate legs but states unable to do so in bed due to size of bed. Allergies Allergy/AdvReac Type Severity Reaction Status Date / Time iodine Allergy Intermediate CT DYE - Verified 07/23/15 19:55 HIVES Home Medications Home Medications Medication Instructions Recorded Confirmed Type aspirin [Aspir-81] 81 mg PO DAILY 09/05/18 09/05/18 History cephalexin 500 mg PO DAILY 09/05/18 09/05/18 History metoprolol succinate 50 mg PO DAILY 09/05/18 09/05/18 History sulfamethoxazole-trimethoprim 1 tab PO DAILY 09/05/18 09/05/18 History Patient History Medical History Depression Alcohol abuse Morbid obesity Cellulitis of both lower extremities (Acute) Lymphedema (Acute) Group B streptococcal infection Leukocytosis Quadriceps tendon rupture (Acute) Social History marital status: single Current Living Situation: Alone current occupational status: employed Other Information That Helps Us Care for You: No Feels Safe at Home: Yes Safety Concerns: Feels Safe At This Time Smoking Status: Never smoker Hx Alcohol Use: Yes Alcohol type: beer Alcohol Intake Frequency: 3 or more drinks per day Hx Substance Use: No Beliefs That Will Affect Care: None Preferred Language: Vietnamese Communication Ability: Effective Chisel Grinder Required: No Review of Systems all remaining ros reviewed and are negative Physical Exam 2 Vital Signs (Past 24 Hours): Last Vital Signs Temp 36.4 C L 09/06/18 07:33 Pulse 63 09/06/18 07:33 Resp 20 09/06/18 07:33 BP 143/72 H 09/06/18 07:33 Pulse Ox 90 09/06/18 07:33 Constitutional: WD/WN, vitals as above Eyes: PERRL, conjunctivae normal, anicteric sclerae ENMT: external ear and nose normal, oropharynx normal Neck: normal visual inspection Respiratory: normal respiratory effort, lungs clear to auscultation Auscultation: + diminished lung sounds Cardiovascular: RRR, no murmur, no edema Gastrointestinal (Abdomen): normal bowel sounds, soft, nontender, no hepatosplenomegaly Skin: no rashes, warm and dry b/l le edema noted, skin dry. left post calf dressing intact, no warmth, some erythema, ? chronic, pt denies worsening. non tender, no weeping, no drainage or bleeding. Psychiatric: A+Ox3, euthymic affect Results & Data Laboratory Results Microbiology 09/06/18 04:30 Leg,Left Gram Stain - Final
--- NOTE | 2018-09-06 15:19 | Pharmacy Report ---
Pharmacy Abx Initial Consult - Date of Service September 06, 2018 - Pharmacy Dosing Scope Date of Consult: 09/05/18 Consultation requested by: Tracey Castillo Pharmacy is consulted to initiate Vancomycin IV dosing therapy, order appropriate labs and adjust drug dose/frequency. - Subjective The patient is a 58 year old M admitted on 09/05/18 18:41. - Objective Height: 6 ft 4 in Weight: 192.7 kg Vital Signs (Past 12hrs): Vital Signs Temp Pulse Resp BP Pulse Ox 09/06/18 14:53 36.4 C L 62 20 155/81 H 91 09/06/18 07:33 36.4 C L 63 20 143/72 H 90 Lab Results (24hrs): Laboratory Tests (24 Hours) 09/06/18 09/05/18 09/05/18 08:19 15:20 15:20 WBC 7.32 Neut # (Auto) 4.38 Creatinine 0.81 0.84 Est Cr Clr Drug Dosing 183.8 Not Reportable Micro Results: 09/06/18 04:30 Gram Stain - Final Leg,Left Wound Culture - Pending - Risk Factors for Resistance * Antimicrobial use within the last 90 days: bactrim and keflex for recurrent cellulitis and lymphedema. - Assessment & Plan Assessment 58 year old M presenting to the ED with increased swelling in b/l legs and SOB. Not sure if patient has an infection or is just volume-overloaded. Patient wanted to be admitted due to increased weeping on the backside of his legs, that has worsened over the last week. Patient has a history of chronic bilateral lower leg cellulitis and is on chronic bactrim and keflex. Wound culture of leg currently pending. Plan Vancomycin for treatment of bilateral lower leg cellulitis Vancomycin IV * Estimated PK Parameters: Vd .54 L/kg, Rick 0.104 hr-1, t1/2 6.7 hr * Loading dose: 2750 mg (15 mg/kg) * Due to patient's elevated BMI of 52 kg/m2, patient is receiving less than traditional dosing * Maintenance dose: 2250 mg IV (11.7 mg/kg) every 8 hours * Goal trough level for cellulitis : 15 to 20 mcg/mL * Trough level ordered for 09/07/18 at 0930 Pharmacy will continue to follow and will adjust dose/frequency as necessary. Thank you.
--- NOTE | 2018-09-06 15:35 | Hospitalist Progress Note ---
Date of Service September 06, 2018 Assessment & Plan (1) Cellulitis of both lower extremities: (2) Lymphedema: (3) Morbid obesity: (4) Alcohol abuse: (5) Depression: (6) DVT prophylaxis: 58yo male with history of morbid obesity admitted on September 05, 2018 because of lymphedema, cellulitis, failed outpatient therapy. Lateral lower extremity cellulitis and left posterior lower extremity open wound , Supple because of fluid overload or combination of cellulitis, The new current IV antibiotics, continue wound care, Infectious disease if wound culture negative, can change back to suppressive abx - bactrim and keflex. pt has ID appt scheduled for late Sep, encourage outpt followup, elevate legs. may benefit from diuresis. Possible fluid overload with diuretic of Lasix 20 twice daily IV ordered -Lovenox subcu Discussed with patient and son about condition and care plan answered all questions Subjective Generally doing the same, bilateral lower extremity edema and swelling and erythema, left posterior leg has some open wounds, which has been seen and dressed by wound care Reports 2 days no bowel movement, Review of Systems Constitutional: Positive weakness, or fatigue Respiratory: no cough, sputum, wheezing, or dyspnea on exertion Cardiac: No chest pain, No orthopnea, Abdomen: No pain, No nausea, No vomiting, No diarrhea, Musculoskeletal: No joint pain, No muscle pain, No calf pain, No problem reported : No dysuria, No urinary frequency, No incontinence, No hematuria Neurologic: No paralysis, No weakness, No numbness/tingling, Psychiatric: No depression symptoms, No anhedonism, No anxiety Heme: No abnormal bleeding/bruising, No clotting problems, Skin: see above , No new/changing skin lesions, No color change, No bleeding Physical Exam 2 Vital Signs (Past 24 Hours): Last Vital Signs Temp 36.4 C L 09/06/18 14:53 Pulse 62 09/06/18 14:53 Resp 20 09/06/18 14:53 BP 155/81 H 09/06/18 14:53 Pulse Ox 91 09/06/18 14:53 Physical Exam: General: awake, alert, no apparent distress, morbidly obese, pleasant conversational, Head: Normocephalic, atraumatic ENT: PERRL, EOMI, no pharyngeal exudate, mucous membranes moist Chest: Significant decreased breathing sound, + faint expiratory wheeze in lower lo bilaterally, Cardiac: Regular rate and rhythm, no murmur, no JVD, normal peripheral pulses, good capillary refill Abdominal: NABS x 4 quadrants, soft, nontender to palpation, no rebound, guarding or tenderness Extremities: normal inspection, significant peripheral edema or erythema lateral lower exts , calfs nontender to palpation, left posterior lower extremity has open wound is in dressing Psych: Depressed mood and flat affect, irritable when questioned, especially about drinking Neuro: AAO x 3, strength intact bilaterally and related 5/5, no motor deficits, speech is clear, no peripheral sensory deficits Results & Data Laboratory Results Laboratory Results - last 24 hr 09/05/18 09/05/18 09/05/18 15:20 15:20 15:20 WBC 7.32 RBC 5.20 Hgb 16.2 Hct 50.2 MCV 96.5 MCH 31.2 MCHC 32.3 RDW Std Deviation 46.6 H RDW Coeff of Megan 13.2 Plt Count 195 MPV 10.3 Immature Gran % (Auto) 0.4 Neut % (Auto) 59.9 Lymph % (Auto) 23.1 Hughes % (Auto) 12.3 Eos % (Auto) 4.2 Baso % (Auto) 0.1 Immature Gran # (Auto) 0.03 H Neut # (Auto) 4.38 Lymph # (Auto) 1.69 Hughes # (Auto) 0.90 H Eos # (Auto) 0.31 Baso # (Auto) 0.01 PT INR Sodium 138 Potassium Chloride 103 Carbon Dioxide 29 Anion Gap 6.0 BUN 12 Creatinine 0.84 Est Cr Clr Drug Dosing Not Reportable Est GFR ( Amer) 112.7 Est GFR (Non-Af Amer) 97.2 BUN/Creatinine Ratio 14.8 Glucose 116 H Calcium 8.6 Total Bilirubin 0.5 Direct Bilirubin AST ALT 40 Alkaline Phosphatase 64 Troponin I < 0.015 NT-Pro-B Natriuret Pep 21 Total Protein 7.6 Albumin 3.4 Globulin 4.2 H Albumin/Globulin Ratio 0.8 L Vitamin B12 Folate Nasal Screen MRSA (PCR) Ethyl Alcohol mg/dL 09/05/18 09/05/18 09/05/18 17:06 20:48 20:48 WBC RBC Hgb Hct MCV MCH MCHC RDW Std Deviation RDW Coeff of Megan Plt Count MPV Immature Gran % (Auto) Neut % (Auto) Lymph % (Auto) Hughes % (Auto) Eos % (Auto) Baso % (Auto) Immature Gran # (Auto) Neut # (Auto) Lymph # (Auto) Hughes # (Auto) Eos # (Auto) Baso # (Auto) PT INR Sodium Potassium 4.3 Chloride Carbon Dioxide Anion Gap BUN Creatinine Est Cr Clr Drug Dosing Est GFR ( Amer) Est GFR (Non-Af Amer) BUN/Creatinine Ratio Glucose Calcium Total Bilirubin 0.5 Direct Bilirubin 0.1 AST 6 L 5 L ALT 33 Alkaline Phosphatase 55 Troponin I NT-Pro-B Natriuret Pep Total Protein 6.5 Albumin 3.2 L Globulin Albumin/Globulin Ratio Vitamin B12 559 Folate 19.38 Nasal Screen MRSA (PCR) Ethyl Alcohol mg/dL 09/05/18 09/06/18 09/06/18 20:48 04:30 08:19 WBC RBC Hgb Hct MCV MCH MCHC RDW Std Deviation RDW Coeff of Megan Plt Count MPV Immature Gran % (Auto) Neut % (Auto) Lymph % (Auto) Hughes % (Auto) Eos % (Auto) Baso % (Auto) Immature Gran # (Auto) Neut # (Auto) Lymph # (Auto) Hughes # (Auto) Eos # (Auto) Baso # (Auto) PT INR Sodium 138 Potassium 4.0 Chloride 103 Carbon Dioxide 29 Anion Gap 6.0 BUN 10 Creatinine 0.81 Est Cr Clr Drug Dosing 183.8 Est GFR ( Amer) 114.3 Est GFR (Non-Af Amer) 98.7 BUN/Creatinine Ratio 11.9 Glucose 123 H Calcium 8.7 Total Bilirubin 0.7 Direct Bilirubin AST 5 L ALT 36 Alkaline Phosphatase 65 Troponin I NT-Pro-B Natriuret Pep Total Protein 7.3 Albumin 3.4 Globulin 3.9 Albumin/Globulin Ratio 0.9 Vitamin B12 Folate Nasal Screen MRSA (PCR) Negative Ethyl Alcohol mg/dL < 3.0 09/06/18 08:19 WBC RBC Hgb Hct MCV MCH MCHC RDW Std Deviation RDW Coeff of Megan Plt Count MPV Immature Gran % (Auto) Neut % (Auto) Lymph % (Auto) Hughes % (Auto) Eos % (Auto) Baso % (Auto) Immature Gran # (Auto) Neut # (Auto) Lymph # (Auto) Hughes # (Auto) Eos # (Auto) Baso # (Auto) PT 10.6 INR 1.1 Sodium Potassium Chloride Carbon Dioxide Anion Gap BUN Creatinine Est Cr Clr Drug Dosing Est GFR ( Amer) Est GFR (Non-Af Amer) BUN/Creatinine Ratio Glucose Calcium Total Bilirubin Direct Bilirubin AST ALT Alkaline Phosphatase Troponin I NT-Pro-B Natriuret Pep Total Protein Albumin Globulin Albumin/Globulin Ratio Vitamin B12 Folate Nasal Screen MRSA (PCR) Ethyl Alcohol mg/dL Microbiology 09/06/18 04:30 Leg,Left Gram Stain - Final
[2018-09-06] MEDS: FUROSEMIDE 20 MG TAB PO SCH (18:05)
[2018-09-06] MEDS: THIAMINE HCL 100 MG in SYRINGE 9 ML IV SCH (21:01)
[2018-09-06] MEDS: cefTRIAXone SODIUM 2,000 MG in DEXTROSE 5% 50 ML IV SCH (21:02)
[2018-09-07] MEDS: VANCOMYCIN HCL 2,250 MG in SODIUM CHLORIDE 0.9% 500 ML IV SCH ×3 (01:54→17:40)
[2018-09-07] MEDS: ASPIRIN 81 MG ECTAB PO SCH (07:44)
[2018-09-07] MEDS: AMMONIUM LACTATE 12% LOTION 225 GM BTL EXT SCH ×2 (07:44→21:01)
[2018-09-07] MEDS: METOPROLOL SUCC 50MG EXT REL TAB PO SCH (07:44)
[2018-09-07] MEDS: MULTIVITAMIN TAB PO SCH (07:44)
[2018-09-07] MEDS: FUROSEMIDE 20 MG TAB PO SCH ×2 (07:44→17:18)
[2018-09-07] MEDS: ENOXAPARIN INJ 40 MG/0.4 ML SYR SQ SCH ×2 (07:44→21:01)
[2018-09-07 08:13] LABS: Albumin Level 3.4 gm/dl (3.4-5.0); Calcium 8.8 mg/dl (8.5-10.1); Creatinine Clr Calc Pharmacy 201.2 ml/min; Est GFR (African American) 118.7; Est GFR (Non-African American) 102.4; Potassium 4.1 mmol/L (3.5-5.1)
[2018-09-07 08:16] LABS: Albumin Globulin Ratio 0.9 (0.9-2); Bilirubin,Total 0.6 mg/dl (0.2-1); Globulin 3.8 gm/dl (2.5-4.0); Total Protein 7.2 gm/dl (6.4-8.2)
[2018-09-07] MEDS ORDERED: VANCOMYCIN TROUGH ONE (09:30)
--- NOTE | 2018-09-07 13:35 | Pharmacy Report ---
Pharmacy Abx Dose Short Note - Date of Service September 07, 2018 - Assessment & Plan Assessment * 58 year old M receiving Vancomycin for treatment of bilateral lower leg cellulitis * Day #3 of antimicrobial therapy * Left leg wound culture: positive for CoNS Plan Vancomycin * Trough level of 14.1 mcg/mL is therapeutic * Continue dose of 2250mg IV every 8 hours * Goal trough level for cellulitis: 10 to 15 mcg/mL * Trough level ordered for: 09/08 @0930 Pharmacy will continue to follow and will adjust dose/frequency as necessary. Thank you.
--- NOTE | 2018-09-07 14:01 | Hospitalist Progress Note ---
Date of Service September 07, 2018 Assessment & Plan (1) Cellulitis of both lower extremities: (2) Lymphedema: (3) Morbid obesity: (4) Alcohol abuse: (5) Depression: (6) DVT prophylaxis: 58yo male with history of morbid obesity admitted on September 05, 2018 because of lymphedema, cellulitis, failed outpatient therapy. bilateral lower extremity cellulitis and left posterior lower extremity open wound, possible because of fluid overload or combination of cellulitis, Wound culture showed coag negative Staphylococcus Continue current IV antibiotics, continue wound care, Infectious disease if wound culture negative, can change back to suppressive abx - bactrim and keflex, possible to tomorrow pt has ID appt scheduled for late Sep, encourage outpt followup, elevate legs. Has start diuretic IV Lasix 20 twice daily IV ordered, discussed with patient about free water restrictions when on diuretic -Lovenox subcu Discussed with patient possible discharge in 1 or 2 days Subjective Generally doing ok, a lot urine output, bilateral lower extremity edema and swelling and erythema looks the same as yesterday, left posterior leg has some open wounds, which has been seen and dressed by wound care Reports 2 days no bowel movement, Review of Systems Constitutional: Positive weakness, or fatigue Respiratory: no cough, sputum, wheezing, or dyspnea on exertion Cardiac: No chest pain, No orthopnea, Abdomen: No pain, No nausea, No vomiting, No diarrhea, Musculoskeletal: No joint pain, No muscle pain, No calf pain, No problem reported : No dysuria, No urinary frequency, No incontinence, No hematuria Neurologic: No paralysis, No weakness, No numbness/tingling, Psychiatric: No depression symptoms, No anxiety Heme: No abnormal bleeding/bruising, No clotting problems, Skin: see above , No new/changing skin lesions, No color change, No bleeding Physical Exam 2 Vital Signs (Past 24 Hours): Last Vital Signs Temp 36.4 C L 09/07/18 08:08 Pulse 63 09/07/18 08:08 Resp 20 09/07/18 08:08 BP 152/89 H 09/07/18 08:08 Pulse Ox 90 09/07/18 08:08 Physical Exam: General: awake, alert, morbidly obese, pleasant conversational, Head: Normocephalic, atraumatic ENT: PERRL, EOMI, no pharyngeal exudate, mucous membranes moist Chest: Significant decreased breathing sound, no expiratory wheeze in lower lo bilaterally, Cardiac: Regular rate and rhythm, no murmur, no JVD, normal peripheral pulses, good capillary refill Abdominal: NABS x 4 quadrants, soft, nontender to palpation, no rebound, guarding or tenderness Extremities: normal inspection, significant peripheral edema or erythema lateral lower exts , calfs nontender to palpation, left posterior lower extremity has open wound is in dressing Psych: Depressed mood and flat affect, irritable when questioned, especially about drinking Neuro: AAO x 3, strength intact bilaterally and related 5/5, no motor deficits, speech is clear, no peripheral sensory deficits Results & Data Laboratory Results Laboratory Results - last 24 hr 09/07/18 09/07/18 07:16 09:16 Sodium 139 Potassium 4.1 Chloride 105 Carbon Dioxide 29 Anion Gap 5.0 BUN 9 Creatinine 0.74 Est Cr Clr Drug Dosing 201.2 Est GFR ( Amer) 118.7 Est GFR (Non-Af Amer) 102.4 BUN/Creatinine Ratio 12.0 Glucose 117 H Calcium 8.8 Total Bilirubin 0.6 AST 5 L ALT 33 Alkaline Phosphatase 62 Total Protein 7.2 Albumin 3.4 Globulin 3.8 Albumin/Globulin Ratio 0.9 Vancomycin Trough 14.1 Microbiology 09/06/18 04:30 Leg,Left Gram Stain - Final 09/06/18 04:30 Leg,Left Wound Culture - Preliminary Coag negative Staphylococcus
[2018-09-07] MEDS ORDERED: POLYETHYLENE (MIRALAX) 17 GM PACK PO PRN (19:04)
[2018-09-07] MEDS: THIAMINE HCL 100 MG in SYRINGE 9 ML IV SCH (21:02)
[2018-09-07] MEDS: cefTRIAXone SODIUM 2,000 MG in DEXTROSE 5% 50 ML IV SCH (21:14)
[2018-09-08] MEDS: VANCOMYCIN HCL 2,250 MG in SODIUM CHLORIDE 0.9% 500 ML IV SCH ×2 (01:48→10:01)
[2018-09-08] MEDS: MULTIVITAMIN TAB PO SCH (08:22)
[2018-09-08] MEDS: ASPIRIN 81 MG ECTAB PO SCH (08:22)
[2018-09-08] MEDS: FUROSEMIDE 20 MG TAB PO SCH ×2 (08:22→16:28)
[2018-09-08] MEDS: METOPROLOL SUCC 50MG EXT REL TAB PO SCH (08:22)
[2018-09-08] MEDS: ENOXAPARIN INJ 40 MG/0.4 ML SYR SQ SCH ×2 (08:22→21:44)
[2018-09-08] MEDS: AMMONIUM LACTATE 12% LOTION 225 GM BTL EXT SCH ×2 (08:23→21:44)
[2018-09-08 08:26] LABS: Hematocrit (blood only) 48.3 % (42-52); Hemoglobin 15.9 g/dL (14.0-18.0); Mean Corpuscular Hgb Conc 32.9 g/dL (32-36); Mean Corpuscular Volume 94.7 fL (80-100); Platelet Count 173 K/uL (130-400); RDW Coefficient of Variation 12.8 % (11.5-14.5); RDW Standard Deviation 44.7 fL (36.4-46.3); White Blood Count 5.07 K/uL (4.8-10.8)
[2018-09-08 08:42] LABS: BUN Creatinine Ratio 12.2 (10-20); Calcium 8.2 mg/dl (8.5-10.1); Creatinine Clr Calc Pharmacy 201.2 ml/min; Est GFR (African American) 118.7; Est GFR (Non-African American) 102.4; Potassium 4.2 mmol/L (3.5-5.1)
[2018-09-08 08:43] LABS: Albumin Level 3.1 gm/dl (3.4-5.0); BUN Creatinine Ratio 13.4 (10-20); Calcium 8.6 mg/dl (8.5-10.1); Creatinine Clr Calc Pharmacy 212.7 ml/min; Est GFR (African American) 121.4; Est GFR (Non-African American) 104.8; Potassium 4.1 mmol/L (3.5-5.1)
[2018-09-08 08:46] LABS: Albumin Globulin Ratio 0.8 (0.9-2); Bilirubin,Total 0.6 mg/dl (0.2-1); Globulin 3.9 gm/dl (2.5-4.0)
[2018-09-08] MEDS ORDERED: VANCOMYCIN TROUGH ONE (09:30)
--- NOTE | 2018-09-08 15:17 | Hospitalist Progress Note ---
Date of Service September 08, 2018 Assessment & Plan (1) Cellulitis of both lower extremities: (2) Lymphedema: (3) Morbid obesity: (4) Alcohol abuse: (5) Depression: (6) DVT prophylaxis: 58yo male with history of morbid obesity admitted on September 05, 2018 because of lymphedema, cellulitis, failed outpatient therapy. bilateral lower extremity cellulitis and left posterior lower extremity open wound, possible because of fluid overload or combination of cellulitis, Wound culture showed coag negative Staphylococcus, he was on chronic bactrim and keflex, follow-up with infectious disease, Continue current IV antibiotics which include Vanco and Rocephin,, continue wound care, Per recommendation of infectious disease if wound culture negative, can change back to suppressive abx - bactrim and keflex, I discontinue Vanco, continue with Rocephin today, Pt has ID appt scheduled for late Sep, encourage outpt followup, elevate legs. Has started diuretic IV Lasix 20 twice daily IV ordered yesterday,, discussed with patient about free water restrictions when on diuretic, seems Lasix is helpful for volume overload, with the decreased edema cellulitis is improving, possible discharge home with oral Lasix and oral antibiotics , possible tomorrow , can double check with infectious disease what antibiotic he wanted to have patient going home -Lovenox subcu Subjective Continue doing ok, a lot urine output, bilateral lower extremity edema and swelling and erythema looks significantly improved compared to admission left posterior leg has some open wounds, which has been seen and dressed by wound care Review of Systems Constitutional: Positive weakness, or fatigue Respiratory: no cough, sputum, wheezing, or dyspnea on exertion Cardiac: No chest pain, No orthopnea, Abdomen: No pain, No nausea, No vomiting, No diarrhea, Musculoskeletal: No joint pain, No muscle pain, No calf pain, No problem reported : No dysuria, No urinary frequency, No incontinence, No hematuria Neurologic: No paralysis, No weakness, No numbness/tingling, Psychiatric: No depression symptoms, No anxiety Heme: No abnormal bleeding/bruising, No clotting problems, Skin: see above , No new/changing skin lesions, No color change, No bleeding Physical Exam 2 Vital Signs (Past 24 Hours): Last Vital Signs Temp 36.8 C 09/08/18 14:55 Pulse 66 09/08/18 14:55 Resp 20 09/08/18 14:55 BP 162/74 H 09/08/18 14:55 Pulse Ox 92 09/08/18 14:55 Physical Exam: General: awake, alert, no apparent distress, morbidly obese, pleasant conversational, Head: Normocephalic, atraumatic ENT: PERRL, EOMI, no pharyngeal exudate, mucous membranes moist Chest: Significant decreased breathing sound, + faint expiratory wheeze in lower lo bilaterally, Cardiac: Regular rate and rhythm, no murmur, no JVD, normal peripheral pulses, good capillary refill Abdominal: NABS x 4 quadrants, soft, nontender to palpation, no rebound, guarding or tenderness Extremities: normal inspection, trace edema, which is significant better, mild erythema mikal lateral lower exts she is better to,, calfs nontender to palpation , left posterior lower extremity has open wound is in dressing Psych: Depressed mood and flat affect, irritable when questioned, especially about drinking Neuro: AAO x 3, strength intact bilaterally and related 5/5, no motor deficits, speech is clear, no peripheral sensory deficits Results & Data Laboratory Results Laboratory Results - last 24 hr 09/08/18 09/08/18 09/08/18 08:14 08:14 08:14 WBC 5.07 RBC 5.10 Hgb 15.9 Hct 48.3 MCV 94.7 MCH 31.2 MCHC 32.9 RDW Std Deviation 44.7 RDW Coeff of Megan 12.8 Plt Count 173 MPV 10.0 Sodium 138 139 Potassium 4.1 4.2 Chloride 104 105 Carbon Dioxide 29 29 Anion Gap 5.0 5.0 BUN 9 9 Creatinine 0.70 0.74 Est Cr Clr Drug Dosing 212.7 201.2 Est GFR ( Amer) 121.4 118.7 Est GFR (Non-Af Amer) 104.8 102.4 BUN/Creatinine Ratio 13.4 12.2 Glucose 122 H 122 H Calcium 8.6 8.2 L Magnesium 2.0 Total Bilirubin 0.6 AST 10 L ALT 37 Alkaline Phosphatase 56 Total Protein 7.0 Albumin 3.1 L Globulin 3.9 Albumin/Globulin Ratio 0.8 L Vancomycin Trough 09/08/18 09:25 WBC RBC Hgb Hct MCV MCH MCHC RDW Std Deviation RDW Coeff of Megan Plt Count MPV Sodium Potassium Chloride Carbon Dioxide Anion Gap BUN Creatinine Est Cr Clr Drug Dosing Est GFR ( Amer) Est GFR (Non-Af Amer) BUN/Creatinine Ratio Glucose Calcium Magnesium Total Bilirubin AST ALT Alkaline Phosphatase Total Protein Albumin Globulin Albumin/Globulin Ratio Vancomycin Trough 14.6 Microbiology 09/06/18 04:30 Leg,Left Gram Stain - Final 09/06/18 04:30 Leg,Left Wound Culture - Final Coag negative Staphylococcus
[2018-09-08] MEDS: LISINOPRIL 5 MG TAB PO SCH (16:28)
[2018-09-08] MEDS: cefTRIAXone SODIUM 2,000 MG in DEXTROSE 5% 50 ML IV SCH (21:45)
[2018-09-08] MEDS: THIAMINE HCL 100 MG in SYRINGE 9 ML IV SCH (21:45)
[2018-09-09 07:10] LABS: Basophils # (auto) 0.01 K/uL (0-0.2); Basophils % (auto) 0.2 %; Eosinophils # (auto) 0.35 K/uL (0-0.5); Hematocrit (blood only) 50.6 % (42-52); Hemoglobin 16.5 g/dL (14.0-18.0); Immature Granulocytes # (auto) 0.01 K/uL (0.00-0.02); Immature Granulocytes % (auto) 0.2 %; Lymphocytes # (auto) 1.38 K/uL (1.2-3.4); Lymphocytes % (auto) 23.7 %; Mean Corpuscular Hgb Conc 32.6 g/dL (32-36); Mean Corpuscular Volume 94.6 fL (80-100); Monocytes # (auto) 0.85 K/uL (0.11-0.59); Monocytes % (auto) 14.6 %; Neutrophils # (auto) 3.23 K/uL (1.4-6.5); Neutrophils % (auto) 55.3 %; Platelet Count 191 K/uL (130-400); RDW Standard Deviation 44.8 fL (36.4-46.3); Red Blood Count 5.35 M/uL (4.7-6.1); White Blood Count 5.83 K/uL (4.8-10.8)
[2018-09-09] MEDS: AMMONIUM LACTATE 12% LOTION 225 GM BTL EXT SCH ×2 (07:33→19:41)
[2018-09-09] MEDS: LISINOPRIL 5 MG TAB PO SCH (07:33)
[2018-09-09] MEDS: ASPIRIN 81 MG ECTAB PO SCH (07:34)
[2018-09-09] MEDS: MULTIVITAMIN TAB PO SCH (07:34)
[2018-09-09] MEDS: FUROSEMIDE 20 MG TAB PO SCH ×2 (07:34→16:17)
[2018-09-09] MEDS: METOPROLOL SUCC 50MG EXT REL TAB PO SCH (07:34)
[2018-09-09] MEDS: ENOXAPARIN INJ 40 MG/0.4 ML SYR SQ SCH ×2 (07:35→20:53)
[2018-09-09 07:48] LABS: BUN Creatinine Ratio 16.8 (10-20); Calcium 8.7 mg/dl (8.5-10.1); Creatinine Clr Calc Pharmacy 222.2 ml/min; Est GFR (African American) 123.6; Est GFR (Non-African American) 106.7; Magnesium 2.2 mg/dl (1.8-2.4); Potassium 3.9 mmol/L (3.5-5.1)
[2018-09-09 07:50] LABS: Phosphorus 3.8 mg/dl (2.5-4.9)
--- NOTE | 2018-09-09 08:23 | Infectious Disease Progress Nt ---
Date of Service September 09, 2018 Assessment & Plan (1) Lymphedema: unsure if current symptoms due to infection, fluid overload or combination. wound culture with management associate only, suspect this is skin dao, can change back to suppressive abx - bactrim and keflex upon d/c. pt has ID appt scheduled for late Sep, encourage outpt followup, elevate legs. Subjective remains afebrile, wbc normal. abx narrowed to rocephin only, tolerating well. wound culture growing management associate only, suspect skin dao. Physical Exam 2 Vital Signs (Past 24 Hours): Last Vital Signs Temp 36.7 C 09/09/18 07:49 Pulse 61 09/09/18 07:49 Resp 16 09/09/18 07:49 BP 158/87 H 09/09/18 07:49 Pulse Ox 90 09/09/18 07:49 Results & Data Laboratory Results Microbiology 09/06/18 04:30 Leg,Left Gram Stain - Final 09/06/18 04:30 Leg,Left Wound Culture - Final Coag negative Staphylococcus
--- NOTE | 2018-09-09 17:36 | Hospitalist Progress Note ---
Date of Service September 09, 2018 Assessment & Plan (1) Cellulitis of both lower extremities: Wound culture with coag neg staph ID consulted - recommend dc vanc and return to suppressive home antibiotic regimen for home. MRSA swab negative. Will continue Rocephin for now. (2) Lymphedema: - Diuresing well - Lasix IV 40 mg - CXR on admission did show trace effusions bilaterally. -Dopplers negative for DVT bilaterally (3) Morbid obesity: -Diet and exercise discussed with the patient at bedside -Patient reports gaining 150 pounds of the past 18 months. -Heart healthy diet -Alcohol use contributing, counseled on cessation - suggested he discuss referral to Dr. Schilling with his doctor (4) Alcohol abuse: -Patient drinks 8-10 beers per day- - No s/s of withdrawal, patient reports he has never withdrawn in the past. -Cessation again encouraged at bedside, patient will need reinforcement upon discharge - continue daily thiamine and MVI (5) Depression: - We discussed possiblility of depression playing a role in his weight gain and alcoholism. I suggested he consider an antidepressant and if he did not want to start one here, he should discuss with his primary care provider. (6) DVT prophylaxis: enoxaparin (7) Sleep apnea: Patient was diagnosed with sleep apnea in 2007 but declined CPAP. We discussed this again in light of his current situation and complaints about daytime fatigue. I discussed the ramifications of untreated sleep apnea and encouraged patient to reconsider use of CPAP. Subjective Mr. Rdz is improving, legs looking better, diuresing well. He has been ambulating around the room. He does complain of sob at times. Review of Systems All systems reviewed & are unremarkable except as noted in HPI & below Physical Exam 2 Vital Signs (Past 24 Hours): Last Vital Signs Temp 36.8 C 09/09/18 16:35 Pulse 60 09/09/18 16:35 Resp 18 09/09/18 16:35 BP 162/92 H 09/09/18 16:35 Pulse Ox 92 09/09/18 16:35 Physical Exam: General: no distress Eyes: normal inspection, PERLL Respiratory: chest non tender, clear to auscultation, normal breath sounds, no respiratory distress, no accessory muscle use Cardiac: regular rate and rhythm, no rub or gallop, no murmur, no jvd GI/: active bowel sounds, no abd pain or tenderness, soft, non distended Extremities: normal range of motion, normal strength, non tender Neuro/Psych: alert and oriented x 3, normal mood and affect Skin: normal color, dry, red/brown lower extremities, edematous bilaterally Results & Data Laboratory Results Abnormal lab results 09/09/18 09/09/18 Range/Units 06:54 06:54 [place] # (Auto) 0.85 H (0.11-0.59) K/uL Glucose 103 H (70-99) mg/dl
[2018-09-09] MEDS: FUROSEMIDE 40 MG in SYRINGE 0 ML IV SCH (19:40)
[2018-09-09] MEDS: THIAMINE HCL 100 MG in SYRINGE 9 ML IV SCH (20:52)
[2018-09-09] MEDS: cefTRIAXone SODIUM 2,000 MG in DEXTROSE 5% 50 ML IV SCH (20:52)
[2018-09-10 07:38] LABS: Basophils # (auto) 0.02 K/uL (0-0.2); Basophils % (auto) 0.3 %; Eosinophils % (auto) 4.9 %; Hematocrit (blood only) 52.3 % (42-52); Hemoglobin 17.6 g/dL (14.0-18.0); Immature Granulocytes # (auto) 0.04 K/uL (0.00-0.02); Immature Granulocytes % (auto) 0.7 %; Lymphocytes # (auto) 1.53 K/uL (1.2-3.4); Lymphocytes % (auto) 25.1 %; Mean Corpuscular Hgb Conc 33.7 g/dL (32-36); Mean Corpuscular Volume 93.9 fL (80-100); Mean Platelet Volume 9.9 fL (7.4-10.4); Monocytes # (auto) 1.05 K/uL (0.11-0.59); Monocytes % (auto) 17.2 %; Neutrophils # (auto) 3.15 K/uL (1.4-6.5); Neutrophils % (auto) 51.8 %; Platelet Count 205 K/uL (130-400); RDW Coefficient of Variation 12.7 % (11.5-14.5); RDW Standard Deviation 43.6 fL (36.4-46.3); Red Blood Count 5.57 M/uL (4.7-6.1); White Blood Count 6.09 K/uL (4.8-10.8)
[2018-09-10 08:11] LABS: BUN Creatinine Ratio 18.6 (10-20); Calcium 8.8 mg/dl (8.5-10.1); Creatinine Clr Calc Pharmacy 180.5 ml/min; Est GFR (African American) 114.9; Est GFR (Non-African American) 99.2; Magnesium 2.2 mg/dl (1.8-2.4); Phosphorus 4.2 mg/dl (2.5-4.9); Potassium 3.9 mmol/L (3.5-5.1)
[2018-09-10] MEDS: LISINOPRIL 5 MG TAB PO SCH (08:13)
[2018-09-10] MEDS: MULTIVITAMIN TAB PO SCH (08:14)
[2018-09-10] MEDS: METOPROLOL SUCC 50MG EXT REL TAB PO SCH (08:14)
[2018-09-10] MEDS: ASPIRIN 81 MG ECTAB PO SCH (08:14)
[2018-09-10] MEDS: FUROSEMIDE 40 MG in SYRINGE 0 ML IV SCH (08:14)
[2018-09-10] MEDS: ENOXAPARIN INJ 40 MG/0.4 ML SYR SQ SCH (08:15)
[2018-09-10] MEDS: AMMONIUM LACTATE 12% LOTION 225 GM BTL EXT SCH (08:17)
[2018-09-10] MEDS ORDERED: VANCOMYCIN TROUGH ONE (09:30)
--- NOTE | 2018-09-10 12:58 | Discharge Summary ---
Date of Service September 10, 2018 Admission HPI Per Admitting Provider This is a 58 yo M with PMHx of morbid obesity with BMI of 51.7, chronic lymphedema, chronic bilateral lower leg cellulitis on chronic bactrim and keflex , chronic alcohol abuse, chronic venous insufficiency, stasis dermatitis who presents with worsening swelling and weeping from left posterior calf which has worsened x 1 week. Pt states he feels a tightness in his legs and feet like he is wearing shoes. He also has a burning sensation superficially where the blister on the back of his left calf has opened. He denies fever, chills or sweats. Pt states that he has gained 150 lbs in past ~18 months, he does not weight himself, and states he cannot participate in exercise because of R quadricept tear sustained about 2 years ago. Doppler BLE negative for acute DVT. Principal Diagnosis cellulitis, lymphadema Discharge Exam Constitutional WD/WN, vitals as above Respiratory normal respiratory effort, lungs clear to auscultation Cardiovascular RRR, no murmur, no edema Gastrointestinal (Abdomen) normal bowel sounds, soft, nontender, no hepatosplenomegaly Musculoskeletal no cyanosis or clubbing, extremities motor strength 5/5 Skin red/brown discoloration of lower extremities Neurologic moves all extremities and awake Psychiatric Orientation: alert and oriented x 3 Affect: + flat affect Mood: + depressed mood Discharge Data Allergies Allergy/AdvReac Type Severity Reaction Status Date / Time iodine Allergy Intermediate CT DYE - Verified 07/23/15 19:55 HIVES Consultations 09/05/18 17:34 ED Decision to Admit Stat 09/05/18 20:34 Consult Infectious Diseases Routine Ordered Studies 09/05/18 15:52 US venous doppler LE Stat Hospital Course (1) Cellulitis of both lower extremities: Wound culture with coag neg staph ID consulted - recommend dc vanc and Rocephin and return to suppressive home antibiotic regimen for home. MRSA swab negative. (2) Lymphedema: - Diuresing well -given Lasix IV 40 mg bid - will discharge with lasix 20 mg bid. Patient did report that taking lasix was a hardship for him as he cannot leave his work to use the bathroom frequently and it keeps him up at night. I advised him to experiment with timing on the two doses. I also counseled him that addressing his sleep apnea may reduce the need for diuresis. - CXR on admission did show trace effusions bilaterally. -Dopplers negative for DVT bilaterally (3) Morbid obesity: -Diet and exercise discussed with the patient at bedside -Patient reports gaining 150 pounds of the past 18 months. -Heart healthy diet -Alcohol use contributing, counseled on cessation - suggested he discuss referral to Dr. Schilling with his doctor (4) Alcohol abuse: -Patient drinks 8-10 beers per day- - No s/s of withdrawal, patient reports he has never withdrawn in the past. -Cessation again encouraged at bedside multiple days, patient reports willingness to decrease his intake - continue daily thiamine and MVI (5) Depression: - We discussed possiblility of depression playing a role in his weight gain and alcoholism. He is very averse to a depression diagnosis. He has had multiple stressors with divorce, job loss, loss of his mother and injury and admits to feeling apathetic and disinterested in most things in his life. He feels he does not have time to care for himself. He is agreeable to starting fluoxetine which I will begin at 20 mg daily. (6) DVT prophylaxis: enoxaparin (7) Sleep apnea: Patient was diagnosed with sleep apnea in 2007 but declined CPAP. We discussed this again in light of his current situation and complaints about daytime fatigue. I discussed the ramifications of untreated sleep apnea and encouraged patient to reconsider use of CPAP. Overall I did spend significant time counseling this patient and discussing treatment possibilities. I think the two things that would make the biggest impact on his life would be addressing his depression and his sleep apnea as they seem to be the root of his other problems and hopefully if those are improved he will have more motivation to take care of other issues such as weight loss and alcohol cessation. Total Time Total Time Spent Total Time Spent (In Minutes): greater than 30 minutes Discharge Plan Discharge Items Patient Disposition: Home - Self-Care Reason For Visit: CELLULITIS,LYMPHEDEMA Discharge Diagnosis: Cellulitis Discharge Goals: Diagnostic testing and Improve disease control Activity: Resume your previous activity Lifting: None Non-emergency contact: Primary Care Provider Call non-emergency contact if: you have any medication questions Follow-up/Referrals: [facility] [Outside] - 09/16/18 2:20 pm (Please, follow up at [facility] on SundaySeptember 16 at 2:20 pm. *This clinic is located at [address] in [place]. If you need to change this appointment, call the clinic at [phone].) Gelacio Burroughs MD [Primary Care Provider] - 09/17/18 3:15 pm (Please, follow up with Dr. Gelacio Burroughs on SundaySeptember 17 at 3:15 pm. *If you need to change this appointment, call the office at [phone].) Tayler Calabrese DO [Physician] - 10/03/18 9:00 am (Please, follow up with Dr. Tayler Calabrese (infectious disease specialist) on October 03 at 9:00 am. *This office is located in [address] of [facility] - big building next to this hospital. If you need to change this appointment, call the office at [phone].) Diet: Heart Healthy Addtl Provider Instructions: Please discuss with Dr. Burroughs resuming your CPAP for your sleep apnea. The new prescription for fluoxetine will take some weeks to feel the effect from. You can titrate up on your dose as needed after that. Please let your doctor know right away if you have any feelings of suicide or self harm on this medication. This risk of this side effect is low for those older than teens and 20s. Call 911 and go to the Emergency Room if: * You have tightness or pain in your chest that does not go away with rest or Nitroglycerin * You are very short of breath even with rest Call your doctor if any of the following symptoms or problems start or get worse: * Shortness of breath or difficulty breathing * Wake up at night short of breath * Chest pain * Cough * Swelling of your hands, fee, or legs * More fatigued or tired with your normal activity * Palpitations - sudden fast heart beats WEIGHT * Weigh yourself every morning after using the bathroom. * Use the same scale. * Wear the same amount of clothing. * Write your weight down on your chart. * Call your doctor if you gain more than 2-3 pounds in 1-2 days. MEDICATIONS * Use this discharge instruction sheet for instructions. * Take your medications at the time your doctor ordered. * Do not skip a dose of your medicines. * If you miss a dose of medicine, take as soon as possible, but DO NOT DOUBLE A DOSE. * Read your medicine information when you get home. * Know all of the side effects of your medicine. * Call your doctor's office if you have any side effects. * Be sure all of your doctors know what medicine and herbs you take (including cold, flu, and herbal medicine). * Pain Medicine: If you do not get relief from your pain, please call your doctor for help. Take the following with you to your follow-up doctor appointments: * Weight Chart * Medication List * List of questions Do not drink excessive alcohol, beer or wine. Prescriptions: New furosemide 20 mg Tablet 20 mg PO BID17 30 Days Qty: 30 RF: 0 fluoxetine 20 mg capsule 20 mg PO DAILY Qty: 30 RF: 0 Continue metoprolol succinate 50 mg tablet extended release 24 hr 50 mg PO DAILY RF: 0 sulfamethoxazole-trimethoprim 800-160 mg tablet 1 tab PO DAILY RF: 0 aspirin [Aspir-81] 81 mg Tablet,Delayed Release (Dr/Ec) 81 mg PO DAILY RF: 0 cephalexin 500 mg capsule 500 mg PO DAILY RF: 0 Visit Report Forms: Departing Portal Stand-Alone Forms: Departing, Work/School Release (Inpt) Discharge Orders: Discharge Order (Routine); Ordered 09/10/18 Ordered By: Ines Burroughs Admission Data Admit Date/Time: 09/09/18 17:37 Attending Provider: Alberto Clarke Admit Provider: Coral Templeton Primary Care Provider: Gelacio Burroughs Other Providers: Coral Templeton ; Tayler Calabrese ; Ines Burroughs Service: Medical
== END 2018-09-10 14:07 | disposition home or self-care (01) | DRG 603 ==
LOC: ED 13:21 → 2W 13:21 → SUATTDRO 18:41 → 2W 20:00 → SUATTDRO 09-09 17:37

== ENCOUNTER 2023-12-29 20:11 | Observation (INO) ==
[2023-12-29 20:41] LABS: Base Excess VBG 6.8 mEq/L; HCO3 VBG 34 mmol/L; Oxygen Saturation VBG 63.7 %; PCO2 VBG 56 mmHg (38-50); PO2 VBG 34 mmHg; pH VBG 7.39 (7.36-7.41)
[2023-12-29 21:02] LABS: Basophils # (auto) 0.04 K/uL (0.00-0.20); Basophils % (auto) 0.5 %; Eosinophils % (auto) 6.1 %; Hematocrit (blood only) 48.7 % (42.0-52.0); Hemoglobin 15.7 g/dl (14.0-18.0); Immature Granulocytes # (auto) 0.05 K/uL (0.01-0.20); Immature Granulocytes % (auto) 0.6 %; Lymphocytes % (auto) 38.8 %; Mean Corpuscular Hgb Conc 32.2 g/dL (32.0-36.0); Mean Corpuscular Volume 89.9 fL (80.0-100.0); Mean Platelet Volume 10.2 fL (9.4-12.4); Monocytes # (auto) 1.05 K/uL (0.11-0.59); Monocytes % (auto) 12.7 %; Neutrophils % (auto) 41.3 %; Platelet Count 231 K/uL (130-400); RDW Coefficient of Variation 13.1 % (11.5-14.5); Red Blood Count 5.42 M/uL (4.70-6.10); White Blood Count 8.24 K/ul (4.8-10.8)
[2023-12-29 21:06] LABS: Albumin Globulin Ratio 1.6 (0.9-2); Albumin Level 4.4 gm/dl (3.4-5.0); BUN Creatinine Ratio 17.6 (10-20); Bilirubin,Total 0.4 mg/dl (0.2-1.0); Calcium 8.9 mg/dl (8.6-10.3); Creatinine Clr Calc Pharmacy 209.7 ml/min; Est GFR (African American) 118.6 ml/min; Est GFR (Non-African American) 102.4 ml/min; Globulin 2.8 gm/dl (2.5-4.0); Potassium 4.2 mmol/L (3.5-5.1); Total Protein 7.2 gm/dl (6.0-8.3)
[2023-12-29 21:13] LABS: Troponin I High Sensitivity 4.7 pg/ml (0-20)
[2023-12-29] MEDS: ALBUTEROL 0.5% NEB SOLN 2.5 MG/0.5 ML VIAL NEB STA ×2 (21:20→23:07)
[2023-12-29 21:38] LABS: Adenovirus PCR Not Detected (NotDetected); Bordetella parapertussis PCR Not Detected (NotDetected); Bordetella pertussis PCR Not Detected (NotDetected); Chlamydia pneumoniae PCR Not Detected (NotDetected); Coronavirus 229E PCR Not Detected (NotDetected); Coronavirus CoV-2 (COVID19)PCR Not Detected (NotDetected); Coronavirus HKU1 PCR Not Detected (NotDetected); Coronavirus NL63 PCR Not Detected (NotDetected); Coronavirus OC43PCR Not Detected (NotDetected); Human Metapneumovirus PCR Not Detected (NotDetected); Influenza A PCR Not Detected (NotDetected); Influenza B PCR Not Detected (NotDetected); Mycoplasma pneumoniae PCR Not Detected (NotDetected); Parainfluenza Virus 1 PCR Not Detected (NotDetected); Parainfluenza Virus 2 PCR Not Detected (NotDetected); Parainfluenza Virus 3 PCR Not Detected (NotDetected); Parainfluenza Virus 4 PCR Not Detected (NotDetected); Respiratory Syncytial VirusPCR Not Detected (NotDetected); Rhinovirus/Enterovirus PCR Not Detected (NotDetected)
--- NOTE | 2023-12-29 22:15 | Emergency Department Note ---
Impression & Plan Diffuse wheezing, Acute dyspnea ED Provider Note NAME: AUDREY LAIRD Sr AGE: 63 SEX: M : 1960 ARRIVES VIA: Ambulance INFORMANT: Patient, ED PROVIDER(S): Enedina Balderas MD CHIEF COMPLAINT: shortness of breath, wheezing HPI: this is a 63-year-old male presenting for increased shortness of breath. Patient states that he has history of CHF, hypertension, was recently started on losartan. He notes that and starting losartan he has noticed increasing high blood pressure and now difficulty breathing. He was even wheezing for the past few days and is having significant difficulty with breathing today the [facility] come to the ER. He notes no significant weight gain, his legs are always chronically swollen due to lymphedema/colitis. He otherwise notes no chest pain or pleurisy. ROS: See above HPI for pertinent positives & negatives. A total of 10 systems reviewed and were otherwise negative. PHYSICAL EXAMINATION: General: resting comfortably in no acute distress Head: Normocephalic and atraumatic Eyes: Normal inspection, extraocular muscles intact Ear, nose, throat: Normal external exam Neck: Normal range of motion Respiratory: Expiratory/inspiratory wheezing Cardiovascular: Regular rate/rhythm, no murmur GI: soft, nontender, no guarding or rebound Extremities: nontender, moves all extremities Neuro: The patient awake and alert, appropriately conversive, no focal deficits, symmetric faces Skin: Warm, dry, and intact MEDICAL DECISION MAKING: This is 61-year-old male presenting for increased shortness of breath. Consider CHF versus ACS versus asthma/COPD. -Due to significant expiratory and expiratory wheezing, will do albuterol treatment here. He did note that prehospital this improved his symptoms -Given 2 rounds of albuterol while in emergency room without significant improvement in his symptoms. He does subjectively feel better but he still having persistent moderate ambulatory with expiratory wheeze. He is nonhypoxic. -Blood work otherwise reveals no significant abnormalities including leukocytosis, anemia. His BNP is not elevated however due to habitus may be artificially low. Troponin negative at this time. Viral panel negative. -Due to persistent wheezing despite 2 rounds of albuterol, will discuss with Dr. Siddiqui for admission. Differential diagnosis: COPD, CHF, asthma, ACS, PE ER treatment provided: See below Diagnostics interpreted by me: ECG: ECG independently interpreted by me with sinus bradycardia, rate of 57, normal MS, incomplete right bundle branch block, normal QTc, no ST segment elevations consistent with STEMI criteria Cardiac Monitoring: An order was placed for continuous cardiac monitoring. The monitor shows a rate of 66 with sinus rhythm. Laboratory studies: As stated above and show below. Imaging studies: See below. 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 Hx of colonic polyp History of COVID-19 Venous insufficiency Otitis media Attention deficit disorder without hyperactivity Bilateral edema of lower extremity Esophageal reflux Hypertension Myalgia Paresthesia Paroxysmal atrial fibrillation Polyneuropathy Severe sleep apnea Depression Alcohol abuse Morbid obesity Lymphedema Cellulitis of both lower extremities Leukocytosis Surgical History Status post endovenous radiofrequency ablation of saphenous vein History of right knee surgery History of removal of cyst Hx of tonsillectomy History of amputation of finger H/O colonoscopy S/P anal fissurectomy History of umbilical hernia repair Family History Mother Diabetes Myocardial infarction Father Neoplasm of adrenal gland Aunt Breast cancer Other No family history of adverse response to anesthesia Denies family history of Ovarian cancer Prostate cancer Colorectal cancer Social History Smoking Status: Former smoker Tobacco Type: Cigarettes Second Hand Exposure: No; Do You Dip or Chew Tobacco: No (quit 20yrs ago); Hx Alcohol Use: No Hx Substance Use: No Preferred Language: [place] Communication Ability: Effective Visual Impairment: No Limitations Hearing Ability: Normal Outdoor Education Teacher Required: No Beliefs That Will Affect Care: None marital status: Current Living Situation: Alone current occupational status: retired 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) Feels Safe at Home: Yes Childhood Exposure to Second-Hand Smoke: Yes caffeine: Yes Dental Care, Regularly: No Physical Activity Frequency: Does not Exercise Seatbelt Use: sometimes Sunscreen Use: No Assistive Devices: CPAP Allergies Allergies Allergy/AdvReac Type Severity Reaction Status Date / Time Iodinated Contrast Media Allergy Severe hives Verified 12/29/23 21:09 atorvastatin Allergy Mild Rash Verified 12/29/23 21:09 Home Meds Home Medications Medication Instructions Recorded Confirmed torsemide 20 mg tablet 20 mg PO DAILY PRN Edema 11/16/20 12/29/23 acetaminophen 500 mg tablet 1,000 mg PO Q6H PRN Pain 12/13/21 12/29/23 (Tylenol Extra Strength) ibuprofen 200 mg tablet 400 mg PO Q6H PRN Pain 12/29/23 12/29/23 magnesium oxide 400 mg PO DAILY 12/29/23 12/29/23 Previous Rx's Medication Instructions Recorded inhalational spacing device #1 ea 06/04/20 (Aerochamber Plus Z Stat spacer) BiPap Machine #1 ea 06/29/22 albuterol sulfate 90 mcg/actuation 2 puff inhalation Q6H PRN 12/05/22 aerosol inhaler shortness of breath or wheezing #8.5 grams rosuvastatin 10 mg tablet 10 mg PO 3XWK #90 tabs 05/24/23 budesonide-formoterol HFA 160 2 puff inhalation BID PRN 12/26/23 mcg-4.5 mcg/actuation aerosol Shortness Of Breath Or Wheezing inhaler (Symbicort) #10.2 grams amlodipine 5 mg tablet (Norvasc) 5 mg PO QAM 30 days #30 tabs 12/30/23 loratadine 10 mg tablet (Wal-itin) 10 mg PO QAM 5 days #5 tabs 12/30/23 Results & Data (ED) Vital Signs Vital Signs - 24 hr 12/29/23 20:16 12/29/23 20:16 12/29/23 20:19 Temperature 36.8 C Temperature Source Oral Pulse Rate 56 L 58 L Pulse Rate [Apical] Respiratory Rate 25 H Respiratory Effort / Characteristics Non-Labored Spontaneous Non-Labored Spontaneous Respiratory Depth Normal Deep Respiratory Pattern Regular Regular Blood Pressure 163/85 H Blood Pressure [Left Arm] Blood Pressure Mean 111 Blood Pressure Mean [Left Arm] Pulse Oximetry 92 Oxygen Delivery Method Room Air Room Air Sepsis Recent Fever Within 48 Hours No Sepsis New/Unexplained Change in Mental Status No Sepsis Action Taken by Nursing No Action Required 12/29/23 20:19 12/29/23 20:32 12/29/23 21:20 Temperature Temperature Source Pulse Rate Pulse Rate [Apical] 53 L Respiratory Rate 21 Respiratory Effort / Characteristics Respiratory Depth Respiratory Pattern Blood Pressure Blood Pressure [Left Arm] 144/76 H Blood Pressure Mean Blood Pressure Mean [Left Arm] 98 Pulse Oximetry 92 95 Oxygen Delivery Method Room Air Room Air Room Air Sepsis Recent Fever Within 48 Hours Sepsis New/Unexplained Change in Mental Status Sepsis Action Taken by Nursing 12/29/23 23:00 Temperature Temperature Source Pulse Rate Pulse Rate [Apical] 51 L Respiratory Rate 25 H Respiratory Effort / Characteristics Non-Labored Spontaneous Respiratory Depth Normal Respiratory Pattern Regular Blood Pressure Blood Pressure [Left Arm] 154/84 H Blood Pressure Mean Blood Pressure Mean [Left Arm] 107 Pulse Oximetry 95 Oxygen Delivery Method Room Air Sepsis Recent Fever Within 48 Hours Sepsis New/Unexplained Change in Mental Status Sepsis Action Taken by Nursing Laboratory Data 12/30/23 05:57 12/30/23 05:57 Lab Results 12/29/23 Range/Units 20:30 WBC 8.24 (4.8-10.8) K/ul RBC 5.42 (4.70-6.10) M/uL Hgb 15.7 (14.0-18.0) g/dl Hct 48.7 (42.0-52.0) % MCV 89.9 (80.0-100.0) fL MCH 29.0 (25.0-34.0) pg MCHC 32.2 (32.0-36.0) g/dL RDW Std Deviation 43.0 (36.4-46.3) fL RDW Coeff of Megan 13.1 (11.5-14.5) % Plt Count 231 (130-400) K/uL MPV 10.2 (9.4-12.4) fL Immature Gran % (Auto) 0.6 % Neut % (Auto) 41.3 % Lymph % (Auto) 38.8 % Hopkins % (Auto) 12.7 % Eos % (Auto) 6.1 % Baso % (Auto) 0.5 % Neut # (Auto) 3.40 (1.40-6.50) K/uL Lymph # (Auto) 3.20 (1.20-3.40) K/uL Hopkins # (Auto) 1.05 H (0.11-0.59) K/uL Eos # (Auto) 0.50 (0.00-0.50) K/uL Baso # (Auto) 0.04 (0.00-0.20) K/uL Immature Gran # (Auto) 0.05 (0.01-0.20) K/uL VBG pH 7.39 (7.36-7.41) VBG pCO2 56 H (38-50) mmHg VBG pO2 34 mmHg VBG HCO3 34 mmol/L VBG O2 Saturation 63.7 % VBG Base Excess 6.8 mEq/L Sodium 139 (136-145) mmol/L Potassium 4.2 (3.5-5.1) mmol/L Chloride 105 (98-107) mmol/L Carbon Dioxide 30 (21-32) mmol/L Anion Gap 4 (3-11) BUN 12 (6-23) mg/dl Creatinine 0.68 (0.6-1.4) mg/dl Est Cr Clr Drug Dosing 209.7 ml/min Est GFR ( Amer) 118.6 ml/min Est GFR (Non-Af Amer) 102.4 ml/min BUN/Creatinine Ratio 17.6 (10-20) Glucose 114 H (70-99(Fasting)) mg/dl Calcium 8.9 (8.6-10.3) mg/dl Total Bilirubin 0.4 (0.2-1.0) mg/dl AST 11 L (13-39) U/L ALT 22 (7-52) U/L Alkaline Phosphatase 54 (34-104) U/L Troponin I High Sens 4.7 (0-20) pg/ml B-Natriuretic Peptide 4 (0-100) pg/ml Total Protein 7.2 (6.0-8.3) gm/dl Albumin 4.4 (3.4-5.0) gm/dl Globulin 2.8 (2.5-4.0) gm/dl Albumin/Globulin Ratio 1.6 (0.9-2) Adenovirus (PCR) Not Detected (NotDetected) B. pertussis DNA (PCR) Not Detected (NotDetected) B.parapertussis DNA PCR Not Detected (NotDetected) C. pneumoniae DNA (PCR) Not Detected (NotDetected) Coronavirus OC43 (PCR) Not Detected (NotDetected) Coronavirus HKU1 (PCR) Not Detected (NotDetected) Coronavirus 229E (PCR) Not Detected (NotDetected) SARS-CoV-2 (PCR) Not Detected (NotDetected) Coronavirus NL63 (PCR) Not Detected (NotDetected) Human Metapneumovir PCR Not Detected (NotDetected) Influenza Type A (PCR) Not Detected (NotDetected) Influenza Type B (PCR) Not Detected (NotDetected) M. pneumoniae (PCR) Not Detected (NotDetected) Parainfluenza 1 (PCR) Not Detected (NotDetected) Parainfluenza 2 (PCR) Not Detected (NotDetected) Parainfluenza 3 (PCR) Not Detected (NotDetected) Parainfluenza 4 (PCR) Not Detected (NotDetected) RSV (PCR) Not Detected (NotDetected) Entero/Rhino (PCR) Not Detected (NotDetected) Administered Medications Albuterol (Albut/Ipratrop 3mg/0.5mg Neb 3 Ml Vial) 3 ml NEB QIDR ROMA; Protocol Stop: 01/29/24 06:59 Last Admin: 12/30/23 11:16 Dose: 3 ml Documented By: Admin: 12/30/23 07:14 Dose: 3 ml Documented By: ALEXIS Amlodipine Besylate (Amlodipine Besylate 5 Mg Tab) 5 mg PO QAM ROMA Stop: 01/29/24 08:59 Last Admin: 12/30/23 09:16 Dose: 5 mg Documented By: Budesonide (Budesonide 0.5 Mg/2 Ml Vial (Pulmicort)) 0.5 mg NEB BIDR ROMA Stop: 01/29/24 06:59 Last Admin: 12/30/23 07:14 Dose: 0.5 mg Documented By: ALEXIS Fluticasone/Vilanterol (Fluticasone/Vilanterol 200/25mcg 14 Puffs/Inhaler) 1 puffs INH DAILY ROMA Stop: 01/29/24 08:59 Last Admin: 12/30/23 09:17 Dose: 1 puffs Documented By: Guaifenesin (Guaifenesin 600 Mg Tabcr) 600 mg PO Q12 ROMA Stop: 01/29/24 08:59 Last Admin: 12/30/23 09:15 Dose: 600 mg Documented By: Heparin Sodium (Porcine) (Heparin Sod 5,000 Unit/0.5 Ml Vial) 5,000 units SQ Q12 ROMA Stop: 01/29/24 08:59 Last Admin: 12/30/23 09:18 Dose: Not Given Documented By: Methylprednisolone 40 mg/ (Syringe) 0.64 mls @ 1.5 mls/min IV Q12H ROMA Stop: 01/29/24 09:59 Last Admin: 12/30/23 09:12 Dose: 1.5 mls/min Documented By: Loratadine (Loratadine 10 Mg Tab) 10 mg PO QAM ROMA Stop: 01/29/24 08:59 Last Admin: 12/30/23 09:15 Dose: 10 mg Documented By: Magnesium Oxide (Magnesium Oxide 400 Mg Tab) 400 mg PO DAILY ROMA Stop: 01/29/24 08:59 Last Admin: 12/30/23 09:14 Dose: 400 mg Documented By: Discontinued Medications Albuterol (Albuterol 0.5% Neb Soln 2.5 Mg/0.5 Ml Vial) 2.5 mg NEB NOW STA; Protocol Stop: 12/29/23 21:02 Last Admin: 12/29/23 21:20 Dose: 2.5 mg Documented By: BABAK Albuterol (Albuterol 0.5% Neb Soln 2.5 Mg/0.5 Ml Vial) 2.5 mg NEB NOW STA; Protocol Stop: 12/29/23 22:58 Last Admin: 12/29/23 23:07 Dose: 2.5 mg Documented By: NERY Guaifenesin (Guaifenesin 600 Mg Tabcr) 600 mg PO NOW STA Stop: 12/29/23 23:17 Last Admin: 12/29/23 23:32 Dose: 600 mg Documented By: NERY Azithromycin 500 mg/ Dextrose 255 mls @ 125 mls/hr IV NOW ONE Stop: 12/30/23 01:18 Last Infusion: 12/30/23 01:37 Dose: Infused Documented By: Admin: 12/29/23 23:32 Dose: 125 mls/hr Documented By: NERY Loratadine (Loratadine 10 Mg Tab) 10 mg PO NOW ONE Stop: 12/29/23 23:17 Last Admin: 12/29/23 23:32 Dose: 10 mg Documented By: NERY Methylprednisolone (Methylprednisolone 125 Mg/2 Ml Vial) 125 mg IV NOW STA Stop: 12/29/23 22:59 Last Admin: 12/29/23 23:07 Dose: 125 mg Documented By: [facility] Imaging Data Radiologist's Impression: Chest X-Ray 12/29/23 20:26 XR chest 1V portable HISTORY: Dyspnea COMPARISON: Chest 10/05/2022. FINDINGS: No pneumothorax. No pleural effusions. The lungs are clear. The heart is top normal in size. There are calcifications within the aortic knob. There are low lung volumes. No acute fractures. IMPRESSION: No significant change compared to the prior study. No acute process. ACT 112: Negative or not required by law. Electronically signed by: Adilson Amaya M.D. 12/30/2023 8:03 AM Discharge Plan Visit Data Chief Complaint: Shortness of Breath/Dyspnea Stated Complaint: increased Shortness of Breath ED Provider: Enedina Balderas Discharge Problem: Diffuse wheezing, Acute dyspnea Patient Disposition: Admitted As Inpatient Discharge Instructions Interventions: ED Discharge Assessment Last Done: 12/29/23 23:59
[2023-12-29] MEDS: methylPREDNISolone 125 MG/2 ML VIAL IV STA (23:07)
--- NOTE | 2023-12-29 23:21 | History & Physical Report ---
Date of Service December 29, 2023 Assessment & Plan (1) Asthmatic bronchitis with acute exacerbation: (2) Adenocarcinoma, colon: (3) Metabolic syndrome: (4) Mixed hyperlipidemia: (5) History of alcohol abuse: (6) Paroxysmal atrial fibrillation: (7) Severe sleep apnea: (8) Morbid obesity: (9) Adverse reaction to drug in therapeutic use: Plan Asthmatic bronchitis with acute exacerbation/history of tobacco abuse/severe CHRIS/presumptive allergies- Status post Solu-Medrol 125 mg IV and albuterol nebulizer from the ED Solu-Medrol 40 mg IV every 12 hours Azithromycin 500 mg IV daily Duonebs every 4 hours while awake and every 2 hours when necessary. Pulmicort Respules 0.5 mg inhaled twice daily Continue Symbicort twice daily Guaifenesin extended release 600 mg p.o. now and every 12 hours Loratadine 10 mg p.o. now and every morning Advised removing his apple trees from his living room If symptoms are persistent, he can speak with his event manager about getting formal allergy testing Patient does not have his CPAP machine with him, and will have respiratory therapy arrange for appropriate CPAP while in the hospital Hypertension/adverse reaction to drug- The losartan at the very least is likely adding to his symptoms of coughing Stop losartan 50 mg daily Start amlodipine 5 mg p.o. every morning, monitor for exacerbation of tendency toward lower extremity edema Morbid obesity- Association with breathing exacerbations Chronic lymphedema- Hold his as needed torsemide History of Present Illness Chief Complaint: The patient presents to the emergency department with complaint of shortness of breath, dyspnea on exertion with audible wheezing, and more recently a nonproductive cough. He reports his symptoms have worsened since his losartan was increased to 25 to 50 mg a few days ago, and since he started the losartan few weeks ago. Primary Care Provider: Brooke Baltazar DO The patient is a 63-year-old male with a past medical history including colon adenocarcinoma, metabolic syndrome, mixed hyperlipidemia, history of alcohol abuse, hypertension, paroxysmal atrial fibrillation, polyneuropathy, severe slee p apnea, morbid obesity and lymphedema. He presents to the emergency department symptoms as noted above. He denies any recent travels or sick exposures. He does have a Symbicort inhaler that he has been using more regularly, and has an albuterol rescue inhaler that he uses intermittently as well. Needed these inhalers seem to help his wheezing and shortness of breath very much. Of note, patient reports that he recently purchased a number of apple trees from [employer], and due to concerns regarding a heavy freeze, he has been keeping the trees in his living room, and upon discussion, notes that this has been when his symptoms appear to have worsened Allergies Allergy/AdvReac Type Severity Reaction Status Date / Time Iodinated Contrast Media Allergy Severe hives Verified 12/29/23 21:09 atorvastatin Allergy Mild Rash Verified 12/29/23 21:09 Home Medications Medication Instructions Recorded Confirmed Type inhalational spacing device #1 ea 06/04/20 12/19/23 Rx (Aerochamber Plus Z Stat spacer) torsemide 20 mg tablet 20 mg PO DAILY PRN Edema 11/16/20 12/29/23 History acetaminophen 500 mg tablet 1,000 mg PO Q6H PRN Pain 12/13/21 12/29/23 History (Tylenol Extra Strength) BiPap Machine #1 ea 06/29/22 12/26/23 Rx albuterol sulfate 90 mcg/actuation 2 puff inhalation Q6H PRN 12/05/22 12/29/23 Rx aerosol inhaler shortness of breath or wheezing #8.5 grams rosuvastatin 10 mg tablet 10 mg PO 3XWK #90 tabs 05/24/23 12/29/23 Rx budesonide-formoterol HFA 160 2 puff inhalation BID PRN 12/26/23 12/29/23 Rx mcg-4.5 mcg/actuation aerosol Shortness Of Breath Or Wheezing inhaler (Symbicort) #10.2 grams ibuprofen 200 mg tablet 400 mg PO Q6H PRN Pain 12/29/23 12/29/23 History losartan 25 mg tablet 50 mg PO QAM 12/29/23 12/29/23 History magnesium oxide 400 mg PO DAILY 12/29/23 12/29/23 History 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 Hx of colonic polyp History of COVID-19 Venous insufficiency Otitis media Attention deficit disorder without hyperactivity Bilateral edema of lower extremity Esophageal reflux Hypertension Myalgia Paresthesia Paroxysmal atrial fibrillation Polyneuropathy Severe sleep apnea Depression Alcohol abuse Morbid obesity Lymphedema Cellulitis of both lower extremities Leukocytosis Surgical History Status post endovenous radiofrequency ablation of saphenous vein History of right knee surgery History of removal of cyst Hx of tonsillectomy History of amputation of finger H/O colonoscopy S/P anal fissurectomy History of umbilical hernia repair Family History Mother Diabetes Myocardial infarction Father Neoplasm of adrenal gland Aunt Breast cancer Other No family history of adverse response to anesthesia Denies family history of Ovarian cancer Prostate cancer Colorectal cancer Social History Smoking Status: Former smoker Tobacco Type: Cigarettes Second Hand Exposure: No; Do You Dip or Chew Tobacco: No (quit 20yrs ago); Hx Alcohol Use: No Hx Substance Use: No Preferred Language: Faroese Communication Ability: Effective Visual Impairment: No Limitations Hearing Ability: Normal Meat Processor Required: No Beliefs That Will Affect Care: None marital status: Current Living Situation: Alone current occupational status: retired 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) Feels Safe at Home: Yes Childhood Exposure to Second-Hand Smoke: Yes caffeine: Yes Dental Care, Regularly: No Physical Activity Frequency: Does not Exercise Seatbelt Use: sometimes Sunscreen Use: No Assistive Devices: CPAP Review of Systems Review of Systems: The patient denies chest pain, palpitations, sore throat, fevers, chills, sweats, nausea, vomiting, diarrhea , constipation, abdominal pain, pelvic pain, blood in urine or stool, dysuria, urinary frequency or urgency, lightheadedness, dizziness, headache, memory loss, loss of consciousness, rash, abnormal bruising or bleeding, imbalance, focal or generalized weakness, numbness or tingling in arms or legs, generalized arthralgias or myalgias, back or neck pain, or night sweats. The review of systems is otherwise negative other than for that already noted above, and at least 10 systems have been reviewed. Physical Exam Physical Exam: The patient is awake, alert and oriented 3, well developed and well nourished, normocephalic and atraumatic, lying in bed and in no acute distress. HEENT--PERRL, EOMI, mucous membranes and oropharynx normal Neck--supple. No JVD. No bruits. Thyroid normal, trachea midline, no adenopathy. Heart--normal S1 and S2. No murmurs, rubs or gallops. Lungs--diffuse inspiratory and expiratory wheezing bilaterally. No respiratory distress, no accessory muscle use. Abdomen--normal bowel sounds and soft. Nontender. Nondistended. Morbidly obese Extremities-trace pitting edema. Dermatologic--normal skin turgor, normal color, no abnormal lymph nodes, no rash. Neurologic--cranial nerves II through XII grossly intact. Rheumatologic--normal range of motion. Psychiatric--normal affect. Results & Data Results & Data Vital Signs (Past 12 Hours) Vital Signs Temp Pulse Pulse Resp BP BP Pulse Ox 12/29/23 23:00 51 L 25 H 154/84 H 95 12/29/23 21:20 53 L 21 144/76 H 95 12/29/23 20:32 92 12/29/23 20:19 12/29/23 20:19 12/29/23 20:16 58 L 12/29/23 20:16 36.8 C 56 L 25 H 163/85 H 92 O2 Del Method 12/29/23 23:00 Room Air 12/29/23 21:20 Room Air 12/29/23 20:32 Room Air 12/29/23 20:19 Room Air 12/29/23 20:19 Room Air 12/29/23 20:16 12/29/23 20:16 Room Air Laboratory Results Laboratory Results WBC 8.24 K/ul (4.8-10.8) 12/29/23 20:30 RBC 5.42 M/uL (4.70-6.10) 12/29/23 20:30 Hgb 15.7 g/dl (14.0-18.0) 12/29/23 20:30 Hct 48.7 % (42.0-52.0) 12/29/23 20:30 MCV 89.9 fL (80.0-100.0) 12/29/23 20:30 MCH 29.0 pg (25.0-34.0) 12/29/23 20:30 MCHC 32.2 g/dL (32.0-36.0) 12/29/23 20:30 RDW Std Deviation 43.0 fL (36.4-46.3) 12/29/23 20:30 RDW Coeff of Megan 13.1 % (11.5-14.5) 12/29/23 20:30 Plt Count 231 K/uL (130-400) 12/29/23 20:30 MPV 10.2 fL (9.4-12.4) 12/29/23 20:30 Immature Gran % (Auto) 0.6 % 12/29/23 20:30 Neut % (Auto) 41.3 % 12/29/23 20:30 Lymph % (Auto) 38.8 % 12/29/23 20:30 [place] % (Auto) 12.7 % 12/29/23 20:30 Eos % (Auto) 6.1 % 12/29/23 20:30 Baso % (Auto) 0.5 % 12/29/23 20:30 Neut # (Auto) 3.40 K/uL (1.40-6.50) 12/29/23 20:30 Lymph # (Auto) 3.20 K/uL (1.20-3.40) 12/29/23 20:30 [place] # (Auto) 1.05 K/uL (0.11-0.59) H 12/29/23 20:30 Eos # (Auto) 0.50 K/uL (0.00-0.50) 12/29/23 20:30 Baso # (Auto) 0.04 K/uL (0.00-0.20) 12/29/23 20:30 Immature Gran # (Auto) 0.05 K/uL (0.01-0.20) 12/29/23 20:30 VBG pH 7.39 (7.36-7.41) 12/29/23 20:30 VBG pCO2 56 mmHg (38-50) H 12/29/23 20:30 VBG pO2 34 mmHg 12/29/23 20:30 VBG HCO3 34 mmol/L 12/29/23 20:30 VBG O2 Saturation 63.7 % 12/29/23 20:30 VBG Base Excess 6.8 mEq/L 12/29/23 20:30 Sodium 139 mmol/L (136-145) 12/29/23 20:30 Potassium 4.2 mmol/L (3.5-5.1) 12/29/23 20:30 Chloride 105 mmol/L (98-107) 12/29/23 20:30 Carbon Dioxide 30 mmol/L (21-32) 12/29/23 20:30 Anion Gap 4 (3-11) 12/29/23 20:30 BUN 12 mg/dl (6-23) 12/29/23 20:30 Creatinine 0.68 mg/dl (0.6-1.4) 12/29/23 20: Est Cr Clr Drug Dosing 209.7 ml/min 12/29/23 20:30 Est GFR ( Amer) 118.6 ml/min 12/29/23 20:30 Est GFR (Non-Af Amer) 102.4 ml/min 12/29/23 20:30 BUN/Creatinine Ratio 17.6 (10-20) 12/29/23 20: Glucose 114 mg/dl (70-99(Fasting)) H 12/29/23 20: Calcium 8.9 mg/dl (8.6-10.3) 12/29/23 20: Total Bilirubin 0.4 mg/dl (0.2-1.0) 12/29/23 20:30 AST 11 U/L (13-39) L 12/29/23 20:30 ALT 22 U/L (7-52) 12/29/23 20:30 Alkaline Phosphatase 54 U/L (34-104) 12/29/23 20:30 Troponin I High Sens 4.7 pg/ml (0-20) 12/29/23 20: B-Natriuretic Peptide 4 pg/ml (0-100) 12/29/23 20:30 Total Protein 7.2 gm/dl (6.0-8.3) 12/29/23 20:30 Albumin 4.4 gm/dl (3.4-5.0) 12/29/23 20:30 Globulin 2.8 gm/dl (2.5-4.0) 12/29/23 20:30 Albumin/Globulin Ratio 1.6 (0.9-2) 12/29/23 20:30 Adenovirus (PCR) Not Detected (NotDetected) 12/29/23 20:30 B. pertussis DNA (PCR) Not Detected (NotDetected) 12/29/23 20:30 B.parapertussis DNA PCR Not Detected (NotDetected) 12/29/23 20:30 C. pneumoniae DNA (PCR) Not Detected (NotDetected) 12/29/23 20:30 Coronavirus OC43 (PCR) Not Detected (NotDetected) 12/29/23 20:30 Coronavirus HKU1 (PCR) Not Detected (NotDetected) 12/29/23 20:30 Coronavirus 229E (PCR) Not Detected (NotDetected) 12/29/23 20:30 SARS-CoV-2 (PCR) Not Detected (NotDetected) 12/29/23 20:30 Coronavirus NL63 (PCR) Not Detected (NotDetected) 12/29/23 20:30 Human Metapneumovir PCR Not Detected (NotDetected) 12/29/23 20:30 Influenza Type A (PCR) Not Detected (NotDetected) 12/29/23 20:30 Influenza Type B (PCR) Not Detected (NotDetected) 12/29/23 20:30 M. pneumoniae (PCR) Not Detected (NotDetected) 12/29/23 20:30 Parainfluenza 1 (PCR) Not Detected (NotDetected) 12/29/23 20:30 Parainfluenza 2 (PCR) Not Detected (NotDetected) 12/29/23 20:30 Parainfluenza 3 (PCR) Not Detected (NotDetected) 12/29/23 20:30 Parainfluenza 4 (PCR) Not Detected (NotDetected) 12/29/23 20:30 RSV (PCR) Not Detected (NotDetected) 12/29/23 20:30 Entero/Rhino (PCR) Not Detected (NotDetected) 12/29/23 20:30 Code Status & VTE Plan Code Status Full code VTE Prophylaxis Plan VTE Prophylaxis will be ordered: Yes PG Care Time/CCT Total # of Minutes Spent Total Time Spent with Patient: Total time spent is greater than 50% in coordination of care (as documented) at patient's floor/unit and/or counseling patient: Coding Level of Care Code 88217 INT INP/OBS CARE 3/75MIN Diagnoses Asthmatic bronchitis with acute exacerbation J45.901 Adenocarcinoma, colon C18.9 Metabolic syndrome E88.81 Mixed hyperlipidemia E78.2 History of alcohol abuse F10.11 Paroxysmal atrial fibrillation I48.0 Severe sleep apnea G47.30 Morbid obesity E66.01 Adverse reaction to drug in therapeutic use T50.693R
[2023-12-29] MEDS: guaiFENesin 600 MG TABCR PO STA (23:32)
[2023-12-29] MEDS: AZITHROMYCIN 500 MG in DEXTROSE 5% 250 ML IV ONE (23:32)
[2023-12-29] MEDS: LORATADINE 10 MG TAB PO ONE (23:32)
[2023-12-30] MEDS ORDERED: NON-FORMULARY MEDICATION (Bipap Machine misc) SCH (00:32)
[2023-12-30] MEDS ORDERED: ACETAMINOPHEN 500 MG TAB PO PRN (00:32)
[2023-12-30 06:18] LABS: Basophils # (auto) 0.02 K/uL (0.00-0.20); Basophils % (auto) 0.3 %; Eosinophils # (auto) 0.02 K/uL (0.00-0.50); Eosinophils % (auto) 0.3 %; Hematocrit (blood only) 47.6 % (42.0-52.0); Hemoglobin 15.4 g/dl (14.0-18.0); Immature Granulocytes # (auto) 0.03 K/uL (0.01-0.20); Immature Granulocytes % (auto) 0.5 %; Lymphocytes # (auto) 0.86 K/uL (1.20-3.40); Mean Corpuscular Hemoglobin 29.1 pg (25.0-34.0); Mean Corpuscular Hgb Conc 32.4 g/dL (32.0-36.0); Mean Corpuscular Volume 89.8 fL (80.0-100.0); Monocytes # (auto) 0.07 K/uL (0.11-0.59); Monocytes % (auto) 1.1 %; Neutrophils % (auto) 84.8 %; Platelet Count 234 K/uL (130-400); RDW Coefficient of Variation 12.9 % (11.5-14.5); RDW Standard Deviation 42.5 fL (36.4-46.3)
[2023-12-30 06:43] LABS: Albumin Level 4.2 gm/dl (3.4-5.0); Calcium 8.6 mg/dl (8.6-10.3); Creatinine Clr Calc Pharmacy 234.5 ml/min; Phosphorus 1.7 mg/dl (2.5-4.9); Potassium 4.3 mmol/L (3.5-5.1)
[2023-12-30] MEDS: ALBUT/IPRATROP 3MG/0.5MG NEB 3 ML VIAL NEB SCH (07:14)
[2023-12-30] MEDS: BUDESONIDE 0.5 MG/2 ML VIAL (PULMICORT) NEB SCH (07:14)
--- NOTE | 2023-12-30 08:05 | XRay Report ---
XR chest 1V portable HISTORY: Dyspnea COMPARISON: Chest 10/05/2022. FINDINGS: No pneumothorax. No pleural effusions. The lungs are clear. The heart is top normal in size . There are calcifications within the aortic knob. There are low lung volumes. No acute fractures. IMPRESSION: No significant change compared to the prior study. No acute process. ACT 112: Negative or not required by law. Electronically signed by: Adilson Amaya M.D. 12/30/2023 8:03 AM
[2023-12-30] MEDS: methylPREDNISolone 40 MG in SYRINGE 0 ML IV SCH (09:12)
[2023-12-30] MEDS: MAGNESIUM OXIDE 400 MG TAB PO SCH (09:14)
[2023-12-30] MEDS: guaiFENesin 600 MG TABCR PO SCH (09:15)
[2023-12-30] MEDS: LORATADINE 10 MG TAB PO SCH (09:15)
[2023-12-30] MEDS: amLODIPine BESYLATE 5 MG TAB PO SCH (09:16)
[2023-12-30] MEDS: FLUTICASONE/VILANTEROL 200/25MCG 14 PUFFS/INHALER INH SCH (09:17)
[2023-12-30] MEDS: HEPARIN SOD 5,000 UNIT/0.5 ML VIAL SQ SCH (09:18)
--- NOTE | 2023-12-30 10:13 | Discharge Summary ---
Date of Service December 30, 2023 Admission HPI Per Admitting Provider The patient is a 63-year-old male with a past medical history including colon adenocarcinoma, metabolic syndrome, mixed hyperlipidemia, history of alcohol abuse, hypertension, paroxysmal atrial fibrillation, polyneuropathy, severe sleep apnea, morbid obesity and lymphedema. He presents to the emergency department symptoms as noted above. He denies any recent travels or sick exposures. He does have a Symbicort inhaler that he has been using more regularly, and has an albuterol rescue inhaler that he uses intermittently as well. Needed these inhalers seem to help his wheezing and shortness of breath very much. Of note, patient reports that he recently purchased a number of apple trees from [employer], and due to concerns regarding a heavy freeze, he has been keeping the trees in his living room, and upon discussion, notes that this has been when his symptoms appear to have worsened Principal Diagnosis Acute asthma exacerbation Discharge Data Allergies Allergy/AdvReac Type Severity Reaction Status Date / Time Iodinated Contrast Media Allergy Severe hives Verified 12/29/23 21:09 atorvastatin Allergy Mild Rash Verified 12/29/23 21:09 Consultations 12/29/23 23:28 ED Decision to Admit Stat Hospital Course (1) Asthmatic bronchitis with acute exacerbation: (2) Adenocarcinoma, colon: (3) Metabolic syndrome: (4) Mixed hyperlipidemia: (5) History of alcohol abuse: (6) Paroxysmal atrial fibrillation: (7) Severe sleep apnea: (8) Morbid obesity: (9) Adverse reaction to drug in therapeutic use: Plan Asthmatic bronchitis with acute exacerbation/history of tobacco abuse/severe CHRIS/presumptive allergies- Status post Solu-Medrol 125 mg IV and albuterol nebulizer from the ED Solu-Medrol 40 mg IV every 12 hours Azithromycin 500 mg IV daily Duonebs every 4 hours while awake and every 2 hours when necessary. Pulmicort Respules 0.5 mg inhaled twice daily Continue Symbicort twice daily Guaifenesin extended release 600 mg p.o. now and every 12 hours Loratadine 10 mg p.o. now and every morning Advised removing his apple trees from his living room Patient currently at baseline, no wheeze no shortness of breath, expressed willingness to be discharged Hypertension/adverse reaction to drug- The losartan at the very least is likely adding to his symptoms of coughing Stop losartan 50 mg daily Start amlodipine 5 mg p.o. every morning, monitor for exacerbation of tendency toward lower extremity edema Morbid obesity- Association with breathing exacerbations Chronic lymphedema- Hold his as needed torsemide Total Time Total Time Spent Total Time Spent (In Minutes): 35 Discharge Plan Discharge Items Patient Disposition: Home - Self-Care Reason For Visit: ASTHMATIC BRONCHITIS, ALLERGY, CHRIS Discharge Diagnosis: allergic reaction Activity: Resume your previous activity Non-emergency contact: Primary Care Provider Call non-emergency contact if: you have any medication questions Follow-up/Referrals: Brooke Baltazar DO [Primary Care Provider] - 01/08/24 11:00 am (with Ilir Damon PA-C. ) Diet: Regular Addtl Attending Provider Instructions: please get rid of the plants in your room, that could have triggered your reaction. I will also discontinue lisinopril, in case it contributed. Will start you on a new med for high blood pressure. Amlodipine Pending Studies at Discharge: No Stand-Alone Forms: My [employer], Smoking Cessation Medications and DC Order Prescriptions: New amlodipine [Norvasc] 5 mg Tablet 5 mg PO QAM 30 Days Qty: 30 0RF loratadine [Wal-itin] 10 mg Tablet 10 mg PO QAM 5 Days Qty: 5 0RF Continued (DME) Aerochamber Plus Z Stat Spacer See Rx Instructions .ROUTE .MEDSUPPLY Qty: 1 0RF Rx Instructions: As directed albuterol sulfate 90 mcg/actuation HFA aerosol inhaler 2 puff inhalation Q6H PRN (Reason: shortness of breath or wheezing) Qty: 8.5 5RF torsemide 20 mg tablet 20 mg PO DAILY PRN (Reason: Edema) (DME) BiPap Machine Misc See Rx Instructions .ROUTE .MEDSUPPLY Qty: 1 0RF Rx Instructions: 20/15 cm of water with mask fit to patient comfort, heated humidification, compliance download capabilities. Samoan Home patient rosuvastatin 10 mg tablet 10 mg PO 3XWK Qty: 90 1RF budesonide-formoterol [Symbicort] 160-4.5 mcg/actuation HFA aerosol inhaler 2 puff inhalation BID PRN (Reason: Shortness Of Breath Or Wheezing) Qty: 10.2 1RF acetaminophen [Tylenol Extra Strength] 500 mg Tablet 1,000 mg PO Q6H PRN (Reason: Pain) ibuprofen 200 mg Tablet 400 mg PO Q6H PRN (Reason: Pain) magnesium oxide 400 mg magnesium Tablet 400 mg PO DAILY Discontinued losartan 25 mg tablet 50 mg PO QAM Discharge Orders: Discharge Order (Routine); Ordered 12/30/23 Ordered By: Jayna Mariscal Admission Data Admit Date/Time: 12/29/23 23:20 Attending Provider: Jayna Mariscal Admit Provider: Yoel Cartwright Primary Care Provider: Brooke Baltazar Other Providers: Yoel Cartwright Coding Level of Care Code 76230 INP/OBS DISCH >30 MIN Diagnoses Asthmatic bronchitis with acute exacerbation J45.901 Adenocarcinoma, colon C18.9 Metabolic syndrome E88.81 Mixed hyperlipidemia E78.2 History of alcohol abuse F10.11 Paroxysmal atrial fibrillation I48.0 Severe sleep apnea G47.30 Morbid obesity E66.01 Adverse reaction to drug in therapeutic use T50.905A Time Spent (min) 35
--- NOTE | 2023-12-30 10:48 | Electrocardiogram Report ---
Test Reason : Blood Pressure : / mmHG Vent. Rate : 057 BPM Atrial Rate : 057 BPM P-R Int : 198 ms QRS Dur : 100 ms QT Int : 456 ms P-R-T Axes : 075 021 081 degrees QTc Int : 443 ms Sinus bradycardia Incomplete right bundle branch block Poor R wave progression, consider anterior [place] vs. lead placement vs. LVH Abnormal ECG When compared with ECG of 18-DEC-2023 15:56, (unconfirmed) No significant change was found Confirmed by All Rivera ([id number]) on 12/30/2023 10:48:16 AM Referred By: REFERRED SELF Confirmed By:All Rivera
[2023-12-30] MEDS ORDERED: AZITHROMYCIN 500 MG in DEXTROSE 5% 250 ML IV SCH (21:00)
== END 2023-12-30 13:00 | disposition home or self-care (01) ==
LOC: 4W 20:11 → ED 20:11 → SUATTDRO 23:20 → 4W 23:59